=== PATIENT | female | born 1965 | race Caucasian/White ===

== ENCOUNTER 2017-04-03 19:30 | Inpatient (IN) | payer MEDICAID, OTHER ==
[~2017-04-03] VITALS: Ht 162.6 cm; Wt 52.9 kg
[~2017-04-03 19:30] MED LIST: CYCL10 PO; FLUO10CA21 PO; PANT40TA25 PO
[2017-04-03 19:58] LABS: BASOPHILS % (AUTO) 0.7 % (0.0-2.0); EOSINOPHILS % (AUTO) 1.3 % (1.0-6.0); HEMATOCRIT 37.9 % (36-46); HEMOGLOBIN 12.5 g/dL (12.0-16.0); LYMPHOCYTES # (AUTO) 3.2 K/uL (1.0-4.8); LYMPHOCYTES % (AUTO) 47.1 % (22.0-44.0); MEAN CORPUSCULAR HEMOGLOBIN 27.9 pg (26.0-34.0); MEAN CORPUSCULAR HGB CONC 32.9 G/dL (31.0-37.0); MEAN CORPUSCULAR VOLUME 85 fL (80-100); MONOCYTES # (AUTO) 0.4 K/uL (0.1-1.0); MONOCYTES % (AUTO) 5.5 % (2.0-9.0); NEUTROPHILS % (AUTO) 45.4 % (40.0-70.0); PLATELET COUNT (AUTO) 494 K/uL (150-450); RED BLOOD CELL COUNT(AUTO) 4.47 MIL/uL (4.00-5.20); RED CELL DISTRIBUTION WIDTH 15.4 % (11.5-14.5); WHITE BLOOD COUNT (AUTO) 6.7 K/uL (4.5-11.0)
[2017-04-03 20:09] LABS: ANION GAP 9 mmol/L (8-16); CALCIUM, TOTAL 8.5 mg/dL (8.8-10.5); CARBON DIOXIDE 28 mmol/L (22-29); CHLORIDE 104 mmol/L (98-107); CREATININE 0.82 mg/dL (0.60-1.30); GLOMERULAR FILTR. RATE CALC > 60 mL/min (>60); POTASSIUM 3.4 mmol/L (3.5-5.1); SODIUM SERUM 141 mmol/L (136-145); UREA NITROGEN, BLOOD 11 mg/dL (7-18)
[2017-04-03 20:16] LABS: ALANINE AMINOTRANSFERASE 17 U/L (12-78); ALBUMIN 3.2 g/dL (3.4-5.0); ASPARTATE AMINOTRANSFERASE 21 U/L (15-37); BILIRUBIN,TOTAL < 0.1 mg/dL (0.1-1.0); TOTAL PROTEIN, SERUM 7.3 g/dL (6.4-8.2)
[2017-04-03] MEDS ORDERED: HALOPERIDOL LACTATE 5 MG/ML VIAL IM ONE (21:00)
[2017-04-03] MEDS ORDERED: DiphenhydrAMINE HCL 50 MG/ML VIAL IM ONE (21:00)
[2017-04-03] MEDS ORDERED: LORazepam 2 MG/ML VIAL IM ONE (21:00)
[2017-04-03] MEDS ORDERED: ZOLPIDEM TARTRATE 10 MG TABLET PO PRN (21:45)
[2017-04-03] MEDS ORDERED: HALOPERIDOL 5 MG TABLET PO PRN (21:45)
[2017-04-03] MEDS ORDERED: LORazepam 2 MG TABLET PO PRN (21:45)
[2017-04-03 22:11] LABS: CHOL/HDL RATIO 2.3 (3.9-5.7); THYROID STIMULATING HORMONE 1.45 uIU/mL (0.36-3.74)
[2017-04-03 22:23] LABS: ADD UA MICROSCOPIC NO; APPEARANCE,URINE CLEAR (CLEAR); GLUCOSE, URINE (UA) NEGATIVE (NEGATIVE); KETONES,URINE NEGATIVE (NEGATIVE); LEUKOCYTE ESTERASE ,URINE NEGATIVE (NEGATIVE); OCCULT BLOOD,URINE NEGATIVE (NEGATIVE); PROTEIN,URINE NEGATIVE (NEGATIVE)
[2017-04-04] VITALS (10 sets, daily range): BP systolic 107–144; BP diastolic 68–86
[2017-04-04] MEDS ORDERED: POTASSIUM CHLORIDE 20 MEQ ER TABLET PO ONE (07:15)
[2017-04-05] VITALS (8 sets, daily range): BP systolic 132–155; BP diastolic 77–98
[2017-04-05] MEDS: FLUoxetine HCL 20 MG CAPSULE PO SCH (09:46)
[2017-04-05] MEDS: CloNIDine HCL 0.1 MG TABLET PO SCH (17:05)
[2017-04-06 01:54] VITALS: BP_SYST 123; BP_SYST 128; BP_DIAS 83
[2017-04-06 08:28] VITALS: BP 130/88
[2017-04-06] MEDS ORDERED: PANTOPRAZOLE SODIUM 40 MG DR TABLET PO SCH (09:00)
[2017-04-06] MEDS: CloNIDine HCL 0.1 MG TABLET PO SCH (09:07)
[2017-04-06] MEDS: FLUoxetine HCL 20 MG CAPSULE PO SCH (09:07)
[2017-04-06] MEDS ORDERED: CLON-570 PO (09:25)
== END 2017-04-06 13:20 | disposition home or self-care (01) | DRG 750 ==
LOC: EMS 19:31 → B2S 22:38
PROVIDERS: ADMIT Psychiatry & Neurology Psychiatry; ATTEND Psychiatry & Neurology Psychiatry
DX: F25.9 Schizoaffective disorder, unspecified (principal); F22 Delusional disorders; R45.851 Suicidal ideations; F31.9 Bipolar disorder, unspecified; F10.10 Alcohol abuse, uncomplicated; F17.200 Nicotine dependence, unspecified, uncomplicated; K21.9 Gastro-esophageal reflux disease without esophagitis; Y90.8 Blood alcohol level of 240 mg/100 ml or more; Z85.3 Personal history of malignant neoplasm of breast; Z98.84 Bariatric surgery status; Z88.8 Allergy status to other drugs, medicaments and biological substances
CPT/HCPCS: 84132; 84443; 87081; 96372; 99285; G0480; J1200; J1630; J2060

== ENCOUNTER 2017-05-12 20:47 | Inpatient (IN) | payer MEDICAID, OTHER ==
[~2017-05-12] VITALS: Ht 162.6 cm; Wt 57.8 kg
[~2017-05-12 20:47] MED LIST changes: +CLON-570 PO; -CYCL10 PO
[2017-05-12] MEDS ORDERED: ARIP5TAB8 PO (20:52)
[2017-05-12] MEDS ORDERED: HYDR-4031 PO (20:53)
[2017-05-12] MEDS ORDERED: GABA-531 PO (20:53)
[2017-05-12 21:10] LABS: BASOPHILS # (AUTO) 0.04 K/uL (0.00-0.20); BASOPHILS % (AUTO) 0.6 % (0.0-2.0); EOSINOPHILS % (AUTO) 1.32 % (1.0-6.0); HEMATOCRIT 38.2 % (36-46); HEMOGLOBIN 12.6 g/dL (12.0-16.0); LYMPHOCYTES % (AUTO) 55.1 % (22.0-44.0); MEAN CORPUSCULAR HEMOGLOBIN 27.7 pg (26.0-34.0); MEAN CORPUSCULAR HGB CONC 32.9 G/dL (31.0-37.0); MEAN CORPUSCULAR VOLUME 84 fL (80-100); MONOCYTES # (AUTO) 0.4 K/uL (0.1-1.0); MONOCYTES % (AUTO) 5.5 % (2.0-9.0); NEUTROPHILS # (AUTO) 2.8 K/uL (1.8-7.7); NEUTROPHILS % (AUTO) 37.5 % (40.0-70.0); PLATELET COUNT (AUTO) 375 K/uL (150-450); RED BLOOD CELL COUNT(AUTO) 4.54 MIL/uL (4.00-5.20); RED CELL DISTRIBUTION WIDTH 17.1 % (11.5-14.5); WHITE BLOOD COUNT (AUTO) 7.3 K/uL (4.5-11.0)
[2017-05-12 21:23] LABS: ANION GAP 5 mmol/L (8-16); CALCIUM, TOTAL 8.7 mg/dL (8.8-10.5); CARBON DIOXIDE 30 mmol/L (22-29); CHLORIDE 105 mmol/L (98-107); CREATININE 0.76 mg/dL (0.60-1.30); GLOMERULAR FILTR. RATE CALC > 60 mL/min (>60); POTASSIUM 4.2 mmol/L (3.5-5.1); SODIUM SERUM 140 mmol/L (136-145); UREA NITROGEN, BLOOD 10 mg/dL (7-18)
[2017-05-12 21:32] LABS: ALANINE AMINOTRANSFERASE 20 U/L (12-78); ALBUMIN 3.5 g/dL (3.4-5.0); ASPARTATE AMINOTRANSFERASE 21 U/L (15-37); BILIRUBIN,TOTAL 0.2 mg/dL (0.1-1.0); TOTAL PROTEIN, SERUM 7.2 g/dL (6.4-8.2)
[2017-05-12 21:47] LABS: RBC MORPHOLOGY COMMENT ABNORMAL RBC MORPH
[2017-05-13] VITALS (8 sets, daily range): BP systolic 116–142; BP diastolic 69–95
[2017-05-13] MEDS ORDERED: ZOLPIDEM TARTRATE 10 MG TABLET PO PRN (01:30)
[2017-05-13] MEDS ORDERED: HALOPERIDOL 5 MG TABLET PO PRN (01:30)
[2017-05-13] MEDS ORDERED: MAGNESIUM SULFATE 2 GM, MVI, ADULT NO.1 WITH VIT K 10 ML, THIAMINE HCL 100 MG, FOLIC AC... IV ONE ×5 (02:15)
[2017-05-13] MEDS ORDERED: LORazepam 2 MG/ML VIAL IVP ONE (02:15)
[2017-05-13] MEDS ORDERED: SODIUM CHLORIDE 0.9% 1,000 ML IV ONE (02:15)
[2017-05-13] MEDS ORDERED: LORazepam 2 MG TABLET PO PRN (02:45)
[2017-05-13 03:14] LABS: APPEARANCE,URINE CLEAR (CLEAR); GLUCOSE, URINE (UA) NEGATIVE (NEGATIVE); KETONES,URINE NEGATIVE (NEGATIVE); LEUKOCYTE ESTERASE ,URINE NEGATIVE (NEGATIVE); OCCULT BLOOD,URINE NEGATIVE (NEGATIVE); PH,URINE 6.5 (5.0-8.0); PROTEIN,URINE NEGATIVE (NEGATIVE)
[2017-05-13 03:15] LABS: ADD UA MICROSCOPIC NO
[2017-05-13] MEDS: LORazepam 2 MG TABLET PO PRN ×2 (08:51→17:31)
[2017-05-13] MEDS ORDERED: CYANOCOBALAMIN 1,000 MCG/ML VIAL IM ONE (10:15)
[2017-05-13] MEDS: ARIPiprazole 10 MG TABLET PO SCH (10:16)
[2017-05-13] MEDS: FLUoxetine HCL 20 MG CAPSULE PO SCH (10:16)
[2017-05-13] MEDS: NICOTINE 21 MG/24 HOUR PATCH TD SCH (10:23)
[2017-05-13] MEDS: FOLIC ACID 1 MG TABLET PO SCH (10:53)
[2017-05-13] MEDS: THIAMINE HCL 100 MG TABLET PO SCH ×2 (10:54→16:43)
[2017-05-13] MEDS ORDERED: ACETAMINOPHEN 325 MG TABLET PO PRN (20:00)
[2017-05-14 00:35] VITALS: BP_SYST 107; BP_SYST 146; BP_DIAS 69; BP_DIAS 86
[2017-05-14 05:00] VITALS: BP 140/74
[2017-05-14] MEDS ORDERED: LORazepam 2 MG TABLET PO PRN (07:00)
[2017-05-14 07:24] LABS: CHOL/HDL RATIO 1.9 (3.9-5.7)
[2017-05-14] MEDS: FLUoxetine HCL 20 MG CAPSULE PO SCH (08:57)
[2017-05-14] MEDS: LORazepam 2 MG TABLET PO SCH ×4 (08:57→21:05)
[2017-05-14] MEDS: PANTOPRAZOLE SODIUM 40 MG DR TABLET PO SCH ×2 (08:57→16:24)
[2017-05-14] MEDS: MULTIVITAMINS WITH MINERALS, THERAPEUTIC TABLET PO SCH (08:57)
[2017-05-14] MEDS: FOLIC ACID 1 MG TABLET PO SCH (08:57)
[2017-05-14] MEDS: ARIPiprazole 10 MG TABLET PO SCH (08:57)
[2017-05-14] MEDS: CloNIDine HCL 0.1 MG TABLET PO SCH ×2 (08:57→16:24)
[2017-05-14] MEDS: THIAMINE HCL 100 MG TABLET PO SCH ×2 (08:58→16:24)
[2017-05-14] MEDS: NICOTINE 21 MG/24 HOUR PATCH TD SCH (09:01)
[2017-05-14 10:11] VITALS: BP 123/72
[2017-05-14 17:58] VITALS: BP 115/76
[2017-05-15 06:12] VITALS: BP 111/67
[2017-05-15] MEDS: ARIPiprazole 10 MG TABLET PO SCH (07:58)
[2017-05-15] MEDS: LORazepam 2 MG TABLET PO SCH ×2 (07:59→12:04)
[2017-05-15 08:00] VITALS: BP 112/75
[2017-05-15] MEDS: MULTIVITAMINS WITH MINERALS, THERAPEUTIC TABLET PO SCH (08:03)
[2017-05-15] MEDS: FOLIC ACID 1 MG TABLET PO SCH (08:03)
[2017-05-15] MEDS: FLUoxetine HCL 20 MG CAPSULE PO SCH (08:03)
[2017-05-15] MEDS: PANTOPRAZOLE SODIUM 40 MG DR TABLET PO SCH (08:03)
[2017-05-15] MEDS: CloNIDine HCL 0.1 MG TABLET PO SCH (08:04)
[2017-05-15] MEDS: THIAMINE HCL 100 MG TABLET PO SCH (08:07)
[2017-05-15] MEDS: NICOTINE 21 MG/24 HOUR PATCH TD SCH (08:08)
[2017-05-15] MEDS ORDERED: MULT-1203 PO (12:05)
[2017-05-15] MEDS ORDERED: THIA100 PO (12:05)
[2017-05-16] MEDS ORDERED: LORazepam 1 MG TABLET PO PRN (07:00)
[2017-05-16] MEDS ORDERED: LORazepam 1 MG TABLET PO SCH (09:00)
[2017-05-17] MEDS ORDERED: LORazepam 1 MG TABLET PO PRN (07:00)
== END 2017-05-15 16:45 | disposition home or self-care (01) | DRG 750 ==
LOC: EMS 21:02 → 3EI 05-13 02:37 → B2S 05-13 02:37 → UNDOADMIN 05-13 02:37
DX: F25.1 Schizoaffective disorder, depressive type (principal); I95.9 Hypotension, unspecified; R45.850 Homicidal ideations; R45.851 Suicidal ideations; Z59.0 Homelessness; I10 Essential (primary) hypertension; F10.239 Alcohol dependence with withdrawal, unspecified; F41.1 Generalized anxiety disorder; G89.29 Other chronic pain; F17.210 Nicotine dependence, cigarettes, uncomplicated; K21.9 Gastro-esophageal reflux disease without esophagitis; M54.9 Dorsalgia, unspecified; Y90.8 Blood alcohol level of 240 mg/100 ml or more; Z79.899 Other long term (current) drug therapy; Z91.5 Personal history of self-harm; Z98.84 Bariatric surgery status; Z88.6 Allergy status to analgesic agent
CPT/HCPCS: 96365; 96375; 99285; G0480; J2060; J3411; J3420; J3475; J3490; J7030

== ENCOUNTER 2017-09-26 16:45 | Inpatient (IN) | payer MEDICAID, OTHER ==
[~2017-09-26] VITALS: Ht 162.6 cm; Wt 63.0 kg
[~2017-09-26 16:45] MED LIST changes: +ARIP10TA8 PO; +FLUO-191 PO; -FLUO10CA21 PO
[2017-09-26] MEDS ORDERED: LORazepam 2 MG TABLET PO ONE (17:15)
[2017-09-26] MEDS ORDERED: HALOPERIDOL 5 MG TABLET PO ONE (17:15)
[2017-09-26 17:26] LABS: BASOPHILS % (AUTO) 0.8 % (0.0-2.0); EOSINOPHILS % (AUTO) 0.6 % (1.0-6.0); HEMATOCRIT 35.5 % (36-46); HEMOGLOBIN 12.2 g/dL (12.0-16.0); LYMPHOCYTES # (AUTO) 2.9 K/uL (1.0-4.8); LYMPHOCYTES % (AUTO) 52.6 % (22.0-44.0); MEAN CORPUSCULAR HEMOGLOBIN 29.9 pg (26.0-34.0); MEAN CORPUSCULAR HGB CONC 34.3 G/dL (31.0-37.0); MEAN CORPUSCULAR VOLUME 87 fL (80-100); MONOCYTES # (AUTO) 0.4 K/uL (0.1-1.0); MONOCYTES % (AUTO) 6.5 % (2.0-9.0); NEUTROPHILS # (AUTO) 2.2 K/uL (1.8-7.7); NEUTROPHILS % (AUTO) 39.5 % (40.0-70.0); PLATELET COUNT (AUTO) 357 K/uL (150-450); RED BLOOD CELL COUNT(AUTO) 4.07 MIL/uL (4.00-5.20); RED CELL DISTRIBUTION WIDTH 15.1 % (11.5-14.5)
[2017-09-26 17:27] LABS: AMPHET/METH SCREEN,URINE NEGATIVE (NEGATIVE); BARBITURATE SCREEN, URINE NEGATIVE (NEGATIVE); BENZODIAZEPINES SCREEN,URINE NEGATIVE (NEGATIVE); CANNABINOID SCREEN,URINE NEGATIVE (NEGATIVE); COCAINE SCREEN,URINE NEGATIVE (NEGATIVE); METHADONE SCREEN, URINE NEGATIVE (NEGATIVE); OPIATE SCREEN,URINE NEGATIVE (NEGATIVE); PHENCYCLIDINE SCREEN,URINE NEGATIVE (NEGATIVE)
[2017-09-26 17:30] LABS: ANION GAP 4 mmol/L (8-16); CALCIUM, TOTAL 8.4 mg/dL (8.8-10.5); CARBON DIOXIDE 31 mmol/L (22-29); CHLORIDE 104 mmol/L (98-107); CREATININE 0.85 mg/dL (0.60-1.30); GLOMERULAR FILTR. RATE CALC > 60 mL/min (>60); GLUCOSE,RANDOM 88 mg/dL (70-110); POTASSIUM 4.3 mmol/L (3.5-5.1); SODIUM SERUM 139 mmol/L (136-145); UREA NITROGEN, BLOOD 10 mg/dL (7-18)
[2017-09-26 17:36] LABS: ALANINE AMINOTRANSFERASE 27 U/L (12-78); ALBUMIN 3.4 g/dL (3.4-5.0); ALKALINE PHOSPHATASE 70 U/L (46-116); ASPARTATE AMINOTRANSFERASE 34 U/L (15-37); BILIRUBIN,TOTAL 0.1 mg/dL (0.1-1.0); TOTAL PROTEIN, SERUM 6.8 g/dL (6.4-8.2)
[2017-09-26] MEDS ORDERED: GuaiFENesin/D-METHORPHAN [SUGAR-FREE] 200-20MG/10 ML SYRUP UDCUP PO PRN (18:45)
[2017-09-26] MEDS ORDERED: HydrOXYzine PAMOATE 50 MG CAPSULE PO PRN (18:45)
[2017-09-26] MEDS ORDERED: LORazepam 2 MG TABLET PO PRN ×2 (18:45)
[2017-09-26] MEDS ORDERED: ZOLPIDEM TARTRATE 10 MG TABLET PO PRN (18:45)
[2017-09-26] MEDS ORDERED: LOPERAMIDE HCL 2 MG CAPSULE PO PRN (18:45)
[2017-09-26] MEDS ORDERED: CYANOCOBALAMIN 1,000 MCG/ML VIAL IM ONE (18:45)
[2017-09-26] MEDS ORDERED: HALOPERIDOL 5 MG TABLET PO PRN (18:45)
[2017-09-27] VITALS (11 sets, daily range): BP systolic 105–125; BP diastolic 66–82
[2017-09-27] MEDS ORDERED: LORazepam 2 MG TABLET PO PRN (07:00)
[2017-09-27] MEDS: ARIPiprazole 10 MG TABLET PO SCH (08:42)
[2017-09-27] MEDS: FLUoxetine HCL 20 MG CAPSULE PO SCH (08:42)
[2017-09-27] MEDS: THIAMINE HCL 100 MG TABLET PO SCH ×3 (08:42→16:32)
[2017-09-27] MEDS: FOLIC ACID 1 MG TABLET PO SCH (08:42)
[2017-09-27] MEDS: LORazepam 2 MG TABLET PO SCH ×4 (08:43→20:18)
[2017-09-27] MEDS: MULTIVITAMINS WITH MINERALS, THERAPEUTIC TABLET PO SCH (08:43)
[2017-09-27] MEDS ORDERED: CYANOCOBALAMIN 1,000 MCG/ML VIAL IM ONE (09:45)
[2017-09-28] VITALS (7 sets, daily range): BP systolic 116–122; BP diastolic 67–88
[2017-09-28] MEDS: LORazepam 2 MG TABLET PO SCH ×4 (08:42→20:39)
[2017-09-28] MEDS: FOLIC ACID 1 MG TABLET PO SCH (08:42)
[2017-09-28] MEDS: THIAMINE HCL 100 MG TABLET PO SCH ×2 (08:42→16:07)
[2017-09-28] MEDS: MULTIVITAMINS WITH MINERALS, THERAPEUTIC TABLET PO SCH (08:42)
[2017-09-28] MEDS: PANTOPRAZOLE SODIUM 40 MG DR TABLET PO SCH (08:42)
[2017-09-28] MEDS: FLUoxetine HCL 20 MG CAPSULE PO SCH (08:42)
[2017-09-28] MEDS: ARIPiprazole 10 MG TABLET PO SCH (08:42)
[2017-09-28] MEDS: NICOTINE 7 MG/24 HOUR PATCH TD SCH (08:42)
[2017-09-28] MEDS: ACETAMINOPHEN 325 MG TABLET PO PRN (18:05)
[2017-09-29] VITALS (8 sets, daily range): BP systolic 110–120; BP diastolic 68–85
[2017-09-29] MEDS ORDERED: LORazepam 1 MG TABLET PO PRN (07:00)
[2017-09-29] MEDS: FOLIC ACID 1 MG TABLET PO SCH (08:22)
[2017-09-29] MEDS: MULTIVITAMINS WITH MINERALS, THERAPEUTIC TABLET PO SCH (08:22)
[2017-09-29] MEDS: ARIPiprazole 15 MG TABLET PO SCH (08:22)
[2017-09-29] MEDS: FLUoxetine HCL 20 MG CAPSULE PO SCH (08:23)
[2017-09-29] MEDS: PANTOPRAZOLE SODIUM 40 MG DR TABLET PO SCH (08:23)
[2017-09-29] MEDS: THIAMINE HCL 100 MG TABLET PO SCH ×2 (08:23→16:07)
[2017-09-29] MEDS: LORazepam 1 MG TABLET PO SCH ×4 (08:23→19:42)
[2017-09-29] MEDS: NICOTINE 7 MG/24 HOUR PATCH TD SCH (08:24)
[2017-09-29] MEDS: ACETAMINOPHEN 325 MG TABLET PO PRN (14:21)
[2017-09-29] MEDS ORDERED: BENZOCAINE 10% 7 GM GEL TP PRN (18:00)
[2017-09-30 00:28] VITALS: BP 111/70
[2017-09-30] MEDS ORDERED: LORazepam 1 MG TABLET PO PRN (07:00)
[2017-09-30 08:00] VITALS: BP 117/72
[2017-09-30 08:09] VITALS: BP_SYST 117; BP_DIAS 72; BP_DIAS 80
[2017-09-30] MEDS: FOLIC ACID 1 MG TABLET PO SCH (08:44)
[2017-09-30] MEDS: MULTIVITAMINS WITH MINERALS, THERAPEUTIC TABLET PO SCH (08:44)
[2017-09-30] MEDS: ARIPiprazole 15 MG TABLET PO SCH (08:44)
[2017-09-30] MEDS: THIAMINE HCL 100 MG TABLET PO SCH ×2 (08:45→17:13)
[2017-09-30] MEDS: PANTOPRAZOLE SODIUM 40 MG DR TABLET PO SCH (08:45)
[2017-09-30] MEDS: FLUoxetine HCL 20 MG CAPSULE PO SCH (08:45)
[2017-09-30] MEDS: NICOTINE 7 MG/24 HOUR PATCH TD SCH (08:48)
[2017-09-30 08:59] LABS: CHOL/HDL RATIO 2.1 (3.9-5.7); THYROID STIMULATING HORMONE 4.31 uIU/mL (0.36-3.74)
[2017-09-30 16:00] VITALS: BP 113/78
[2017-10-01 02:40] VITALS: BP 104/66
[2017-10-01 07:06] VITALS: BP 104/66
[2017-10-01 08:42] VITALS: BP 100/60
[2017-10-01 09:00] VITALS: BP 100/60
[2017-10-01] MEDS: MULTIVITAMINS WITH MINERALS, THERAPEUTIC TABLET PO SCH (09:14)
[2017-10-01] MEDS: FLUoxetine HCL 20 MG CAPSULE PO SCH (09:14)
[2017-10-01] MEDS: PANTOPRAZOLE SODIUM 40 MG DR TABLET PO SCH (09:14)
[2017-10-01] MEDS: ARIPiprazole 15 MG TABLET PO SCH (09:14)
[2017-10-01] MEDS: FOLIC ACID 1 MG TABLET PO SCH (09:14)
[2017-10-01] MEDS: THIAMINE HCL 100 MG TABLET PO SCH (09:14)
[2017-10-01] MEDS: NICOTINE 7 MG/24 HOUR PATCH TD SCH (09:15)
[2017-10-01] MEDS ORDERED: ARIP15TA2 PO (09:42)
[2017-10-01] MEDS ORDERED: FLUO-191 PO (09:42)
[2017-10-01] MEDS ORDERED: PANT40TA25 PO (10:58)
[2017-10-01 13:50] VITALS: BP 110/68
[2017-10-01] MEDS: ACETAMINOPHEN 325 MG TABLET PO PRN (13:51)
== END 2017-10-01 15:40 | disposition home or self-care (01) | DRG 750 ==
LOC: EMS 16:46 → B2S 22:03
PROVIDERS: ADMIT Psychiatry & Neurology Child & Adolescent Psychiatry; ATTEND Psychiatry & Neurology Psychiatry
DX: F25.9 Schizoaffective disorder, unspecified (principal); R45.850 Homicidal ideations; R45.851 Suicidal ideations; I10 Essential (primary) hypertension; D64.9 Anemia, unspecified; F10.20 Alcohol dependence, uncomplicated; F12.90 Cannabis use, unspecified, uncomplicated; K21.9 Gastro-esophageal reflux disease without esophagitis; Y90.8 Blood alcohol level of 240 mg/100 ml or more; F17.200 Nicotine dependence, unspecified, uncomplicated; Z71.6 Tobacco abuse counseling; Z71.51 Drug abuse counseling and surveillance of drug abuser; Z71.41 Alcohol abuse counseling and surveillance of alcoholic; Z79.899 Other long term (current) drug therapy; Z85.3 Personal history of malignant neoplasm of breast; Z98.82 Breast implant status; Z98.84 Bariatric surgery status; Z88.6 Allergy status to analgesic agent
CPT/HCPCS: 83036; 84443; 99285; G0480; J3420

== ENCOUNTER 2017-11-12 14:08 | Inpatient (IN) | payer MEDICAID ==
[~2017-11-12] VITALS: Ht 162.6 cm; Wt 65.5 kg
[2017-11-12] VITALS (8 sets, daily range): BP systolic 104–138; BP diastolic 65–94
[~2017-11-12 14:08] MED LIST changes: -ARIP10TA8 PO; +ARIP15TA2 PO; -CLON-570 PO
[2017-11-12] MEDS ORDERED: ZOLPIDEM TARTRATE 10 MG TABLET PO PRN (14:30)
[2017-11-12] MEDS: LORazepam 2 MG TABLET PO PRN (14:54)
[2017-11-12] MEDS ORDERED: CLON-570 PO (14:55)
[2017-11-12] MEDS ORDERED: GABA-531 PO (14:55)
[2017-11-12] MEDS ORDERED: LOPERAMIDE HCL 2 MG CAPSULE PO PRN (15:15)
[2017-11-12] MEDS ORDERED: MAG HYDROX/AL HYDROX/SIMETH ES 30 ML SUSPENSION UDCUP PO PRN (15:15)
[2017-11-12] MEDS ORDERED: ALBUTEROL SULFATE HFA 90 MCG/PUFF 8 GM INHALER IH PRN (15:15)
[2017-11-12] MEDS ORDERED: BENZOCAINE/MENTHOL LOZENGE MM PRN (15:15)
[2017-11-12] MEDS ORDERED: ONDANSETRON HCL 4 MG TABLET PO PRN (15:15)
[2017-11-12] MEDS ORDERED: PETROLATUM,WHITE 71 GM JELLY TP PRN (15:15)
[2017-11-12] MEDS ORDERED: CloNIDine HCL 0.1 MG TABLET PO PRN (15:15)
[2017-11-12] MEDS ORDERED: BACITRACIN 28.4 GM OINTMENT TP PRN (15:15)
[2017-11-12] MEDS ORDERED: MAGNESIUM HYDROXIDE SUSPENSION 30 ML UDCUP PO PRN (15:15)
[2017-11-12] MEDS ORDERED: ACETAMINOPHEN 325 MG TABLET PO PRN (15:15)
[2017-11-13] VITALS (11 sets, daily range): BP systolic 119–141; BP diastolic 76–88
[2017-11-13] MEDS: LORazepam 2 MG TABLET PO PRN ×4 (03:27→22:45)
[2017-11-13] MEDS: ARIPiprazole 15 MG TABLET PO SCH (08:41)
[2017-11-13] MEDS: OMEPRAZOLE 20 MG CAPSULE PO SCH (08:41)
[2017-11-13] MEDS: DOCUSATE SODIUM 100 MG CAPSULE PO SCH (08:41)
[2017-11-13] MEDS: FLUoxetine HCL 20 MG CAPSULE PO SCH (08:41)
[2017-11-13 09:08] LABS: BASOPHILS % (AUTO) 1.1 % (0.0-2.0); EOSINOPHILS % (AUTO) 0.5 % (1.0-6.0); HEMATOCRIT 40.2 % (36-46); HEMOGLOBIN 14.1 g/dL (12.0-16.0); LYMPHOCYTES # (AUTO) 2.6 K/uL (1.0-4.8); LYMPHOCYTES % (AUTO) 51.7 % (22.0-44.0); MEAN CORPUSCULAR HEMOGLOBIN 30.4 pg (26.0-34.0); MEAN CORPUSCULAR HGB CONC 35.2 G/dL (31.0-37.0); MEAN CORPUSCULAR VOLUME 87 fL (80-100); MONOCYTES # (AUTO) 0.3 K/uL (0.1-1.0); MONOCYTES % (AUTO) 5.7 % (2.0-9.0); NEUTROPHILS # (AUTO) 2.1 K/uL (1.8-7.7); PLATELET COUNT (AUTO) 345 K/uL (150-450); RED BLOOD CELL COUNT(AUTO) 4.64 MIL/uL (4.00-5.20); RED CELL DISTRIBUTION WIDTH 16.4 % (11.5-14.5)
[2017-11-13 09:50] LABS: ALANINE AMINOTRANSFERASE 62 U/L (12-78); ALBUMIN 3.1 g/dL (3.4-5.0); ALKALINE PHOSPHATASE 167 U/L (46-116); ANION GAP 8 mmol/L (8-16); ASPARTATE AMINOTRANSFERASE 66 U/L (15-37); BILIRUBIN,TOTAL 0.9 mg/dL (0.1-1.0); CALCIUM, TOTAL 8.6 mg/dL (8.8-10.5); CARBON DIOXIDE 27 mmol/L (22-29); CHLORIDE 100 mmol/L (98-107); CHOL/HDL RATIO 1.4 (3.9-5.7); CHOLESTEROL 146 mg/dL (131-200); CREATININE 0.83 mg/dL (0.60-1.30); FREE T4 (FREE THYROXINE) 0.93 ng/dL (0.76-1.46); GLOMERULAR FILTR. RATE CALC > 60 mL/min (>60); GLUCOSE,RANDOM 77 mg/dL (70-110); HDL CHOLESTEROL 102 mg/dL (40-60); LDL CHOL (CALC.) 22 mg/dL (0-130); SODIUM SERUM 135 mmol/L (136-145); TOTAL PROTEIN, SERUM 6.8 g/dL (6.4-8.2); TRIGLYCERIDES 108 mg/dL (15-150); UREA NITROGEN, BLOOD 16 mg/dL (7-18)
[2017-11-13] MEDS ORDERED: CYANOCOBALAMIN 1,000 MCG/ML VIAL IM ONE (10:15)
[2017-11-13] MEDS: THIAMINE HCL 100 MG TABLET PO SCH ×2 (10:38→16:33)
[2017-11-13] MEDS: GABAPENTIN 300 MG CAPSULE PO SCH ×3 (10:38→16:33)
[2017-11-13] MEDS: FOLIC ACID 1 MG TABLET PO SCH (10:39)
[2017-11-13] MEDS: MULTIVITAMINS WITH MINERALS, THERAPEUTIC TABLET PO SCH (10:39)
[2017-11-13] MEDS: CYCLOBENZAPRINE HCL 10 MG TABLET PO SCH ×4 (12:02→16:33)
[2017-11-14] VITALS (8 sets, daily range): BP systolic 122–129; BP diastolic 61–96
[2017-11-14] MEDS ORDERED: LORazepam 2 MG TABLET PO PRN (07:00)
[2017-11-14] MEDS: LORazepam 2 MG TABLET PO PRN (07:05)
[2017-11-14] MEDS: DOCUSATE SODIUM 100 MG CAPSULE PO SCH (08:48)
[2017-11-14] MEDS: CYCLOBENZAPRINE HCL 10 MG TABLET PO SCH ×3 (08:48→16:09)
[2017-11-14] MEDS: GABAPENTIN 300 MG CAPSULE PO SCH ×3 (08:48→16:09)
[2017-11-14] MEDS: MULTIVITAMINS WITH MINERALS, THERAPEUTIC TABLET PO SCH (08:48)
[2017-11-14] MEDS: FLUoxetine HCL 20 MG CAPSULE PO SCH (08:48)
[2017-11-14] MEDS: OMEPRAZOLE 20 MG CAPSULE PO SCH (08:48)
[2017-11-14] MEDS: ARIPiprazole 15 MG TABLET PO SCH (08:48)
[2017-11-14] MEDS: THIAMINE HCL 100 MG TABLET PO SCH ×2 (08:49→16:09)
[2017-11-14] MEDS: FOLIC ACID 1 MG TABLET PO SCH (08:49)
[2017-11-14] MEDS: LORazepam 2 MG TABLET PO SCH ×4 (09:24→20:08)
[2017-11-15 00:04] VITALS: BP 130/86
[2017-11-15] MEDS: HALOPERIDOL 5 MG TABLET PO PRN ×2 (00:14→18:50)
[2017-11-15 08:09] VITALS: BP 116/90
[2017-11-15] MEDS: CYCLOBENZAPRINE HCL 10 MG TABLET PO SCH ×3 (08:31→17:05)
[2017-11-15] MEDS: LORazepam 2 MG TABLET PO SCH ×4 (08:31→21:13)
[2017-11-15] MEDS: MULTIVITAMINS WITH MINERALS, THERAPEUTIC TABLET PO SCH (08:31)
[2017-11-15] MEDS: GABAPENTIN 300 MG CAPSULE PO SCH ×3 (08:31→17:05)
[2017-11-15] MEDS: ARIPiprazole 15 MG TABLET PO SCH (08:31)
[2017-11-15] MEDS: DOCUSATE SODIUM 100 MG CAPSULE PO SCH (08:31)
[2017-11-15] MEDS: OMEPRAZOLE 20 MG CAPSULE PO SCH (08:31)
[2017-11-15] MEDS: THIAMINE HCL 100 MG TABLET PO SCH ×2 (08:32→17:05)
[2017-11-15] MEDS: FLUoxetine HCL 20 MG CAPSULE PO SCH (08:32)
[2017-11-15] MEDS: FOLIC ACID 1 MG TABLET PO SCH (08:36)
[2017-11-15 08:52] VITALS: BP 116/90
[2017-11-15 12:14] VITALS: BP 122/80
[2017-11-15 16:00] VITALS: BP 112/70
[2017-11-15 16:07] VITALS: BP 112/70
[2017-11-16 06:17] VITALS: BP 119/73
[2017-11-16 06:18] VITALS: BP 119/73
[2017-11-16] MEDS ORDERED: LORazepam 1 MG TABLET PO PRN (07:00)
[2017-11-16 08:21] VITALS: BP 110/78
[2017-11-16] MEDS: FOLIC ACID 1 MG TABLET PO SCH (08:25)
[2017-11-16] MEDS: LORazepam 1 MG TABLET PO SCH ×4 (08:25→21:04)
[2017-11-16] MEDS: ARIPiprazole 15 MG TABLET PO SCH (08:25)
[2017-11-16] MEDS: FLUoxetine HCL 20 MG CAPSULE PO SCH (08:25)
[2017-11-16] MEDS: GABAPENTIN 300 MG CAPSULE PO SCH ×3 (08:26→17:00)
[2017-11-16] MEDS: OMEPRAZOLE 20 MG CAPSULE PO SCH (08:26)
[2017-11-16] MEDS: DOCUSATE SODIUM 100 MG CAPSULE PO SCH (08:26)
[2017-11-16] MEDS: MULTIVITAMINS WITH MINERALS, THERAPEUTIC TABLET PO SCH (08:26)
[2017-11-16] MEDS: THIAMINE HCL 100 MG TABLET PO SCH ×2 (08:26→17:00)
[2017-11-16] MEDS: CYCLOBENZAPRINE HCL 10 MG TABLET PO SCH ×3 (08:26→17:00)
[2017-11-16 16:00] VITALS: BP 101/75
[2017-11-16 16:01] VITALS: BP 101/75
[2017-11-17 01:00] VITALS: BP 102/70
[2017-11-17] MEDS ORDERED: LORazepam 1 MG TABLET PO PRN (07:00)
[2017-11-17] MEDS: GABAPENTIN 300 MG CAPSULE PO SCH (08:03)
[2017-11-17] MEDS: ARIPiprazole 15 MG TABLET PO SCH (08:03)
[2017-11-17] MEDS: FLUoxetine HCL 20 MG CAPSULE PO SCH (08:03)
[2017-11-17] MEDS: OMEPRAZOLE 20 MG CAPSULE PO SCH (08:03)
[2017-11-17] MEDS: DOCUSATE SODIUM 100 MG CAPSULE PO SCH (08:03)
[2017-11-17] MEDS: THIAMINE HCL 100 MG TABLET PO SCH (08:03)
[2017-11-17] MEDS: FOLIC ACID 1 MG TABLET PO SCH (08:03)
[2017-11-17] MEDS: MULTIVITAMINS WITH MINERALS, THERAPEUTIC TABLET PO SCH (08:03)
[2017-11-17] MEDS: CYCLOBENZAPRINE HCL 10 MG TABLET PO SCH (08:10)
[2017-11-17 08:24] VITALS: BP 109/79
[2017-11-17] MEDS ORDERED: CHOLECALCIFEROL (VIT D3) 1,000 UNITS TABLET PO SCH (09:00)
[2017-11-17] MEDS ORDERED: DSS100 PO (09:38)
[2017-11-17] MEDS ORDERED: OMEP20 PO (09:38)
[2017-11-17] MEDS ORDERED: CYCL10 PO (09:38)
[2017-11-17] MEDS ORDERED: VITAD1000 PO (09:38)
== END 2017-11-17 11:15 | disposition home or self-care (01) | DRG 750 ==
LOC: B2S 14:26
PROVIDERS: ADMIT Psychiatry & Neurology Psychiatry; ATTEND Psychiatry & Neurology Psychiatry
DX: F25.1 Schizoaffective disorder, depressive type (principal); R45.851 Suicidal ideations; I10 Essential (primary) hypertension; D64.9 Anemia, unspecified; F31.9 Bipolar disorder, unspecified; E55.9 Vitamin D deficiency, unspecified; K21.9 Gastro-esophageal reflux disease without esophagitis; M54.2 Cervicalgia; F10.20 Alcohol dependence, uncomplicated; K46.9 Unspecified abdominal hernia without obstruction or gangrene; F17.200 Nicotine dependence, unspecified, uncomplicated; Z90.49 Acquired absence of other specified parts of digestive tract; Z90.13 Acquired absence of bilateral breasts and nipples; Z90.710 Acquired absence of both cervix and uterus; Z98.84 Bariatric surgery status; Z88.6 Allergy status to analgesic agent; Z79.899 Other long term (current) drug therapy; Z91.5 Personal history of self-harm; Z85.3 Personal history of malignant neoplasm of breast; Z71.41 Alcohol abuse counseling and surveillance of alcoholic; Z71.6 Tobacco abuse counseling
CPT/HCPCS: 82306; 83036; 84132; 84295; 84439; 84443; J3420

== ENCOUNTER 2017-12-14 20:38 | Emergency (ER) | payer MEDICAID, OTHER ==
[~2017-12-14] VITALS: Ht 172.7 cm; Wt 63.6 kg
[~2017-12-14 20:38] MED LIST changes: +CYCL10 PO; +DSS100 PO; +GABA-531 PO; +OMEP20 PO; -PANT40TA25 PO; +VITAD1000 PO
[2017-12-14] MEDS ORDERED: QUET100T PO (20:56)
[2017-12-14 22:27] LABS: HEMATOCRIT 33.8 % (36-46); HEMOGLOBIN 11.5 g/dL (12.0-16.0); MEAN CORPUSCULAR HEMOGLOBIN 28.8 pg (26.0-34.0); MEAN CORPUSCULAR HGB CONC 34.1 G/dL (31.0-37.0); MEAN CORPUSCULAR VOLUME 84 fL (80-100); PLATELET COUNT (AUTO) 339 K/uL (150-450); RED BLOOD CELL COUNT(AUTO) 4.01 MIL/uL (4.00-5.20); RED CELL DISTRIBUTION WIDTH 16.6 % (11.5-14.5)
[2017-12-14 22:30] LABS: AMPHET/METH SCREEN,URINE NEGATIVE (NEGATIVE); BARBITURATE SCREEN, URINE NEGATIVE (NEGATIVE); BENZODIAZEPINES SCREEN,URINE NEGATIVE (NEGATIVE); CANNABINOID SCREEN,URINE NEGATIVE (NEGATIVE); COCAINE SCREEN,URINE NEGATIVE (NEGATIVE); METHADONE SCREEN, URINE NEGATIVE (NEGATIVE); OPIATE SCREEN,URINE NEGATIVE (NEGATIVE)
[2017-12-14 22:31] LABS: PHENCYCLIDINE SCREEN,URINE NEGATIVE (NEGATIVE)
[2017-12-14 22:37] LABS: ANION GAP 9 mmol/L (8-16); CALCIUM, TOTAL 8.4 mg/dL (8.8-10.5); CARBON DIOXIDE 26 mmol/L (22-29); CHLORIDE 98 mmol/L (98-107); CREATININE 0.85 mg/dL (0.60-1.30); GLOMERULAR FILTR. RATE CALC > 60 mL/min (>60); GLUCOSE,RANDOM 90 mg/dL (70-110); SODIUM SERUM 133 mmol/L (136-145); UREA NITROGEN, BLOOD 8 mg/dL (7-18)
[2017-12-14 22:43] LABS: ALANINE AMINOTRANSFERASE 26 U/L (12-78); ALBUMIN 3.2 g/dL (3.4-5.0); ALKALINE PHOSPHATASE 64 U/L (46-116); ASPARTATE AMINOTRANSFERASE 29 U/L (15-37); BILIRUBIN,TOTAL 0.1 mg/dL (0.1-1.0)
[2017-12-14 22:52] LABS: BAND NEUTROPHILS % (MANUAL) 0 % (0-5)
[2017-12-14 22:58] LABS: EOSINOPHILS % (MANUAL) 2 % (1-6); LYMPHOCYTES % (MANUAL) 47 % (22-44); MONOCYTES % (MANUAL) 6 % (2-9); REACTIVE LYMPHOCYTES 10 % (0-0); SEGMENTED NEUTROPHILS % 35 % (40-70)
[2017-12-14 23:01] LABS: PLATELET MORPHOLOGY COMMENT LARGE PLTS PRESENT
[2017-12-15 06:44] VITALS: BP 110/62
== END 2017-12-15 06:47 | disposition home or self-care (01) ==
LOC: EMS 20:39
DX: F10.10 Alcohol abuse, uncomplicated (principal); F32.9 Major depressive disorder, single episode, unspecified; F41.9 Anxiety disorder, unspecified; F20.9 Schizophrenia, unspecified; F17.210 Nicotine dependence, cigarettes, uncomplicated; Z79.899 Other long term (current) drug therapy; Z88.8 Allergy status to other drugs, medicaments and biological substances
CPT/HCPCS: 36415; 80053; 80307; 85025; 99285; G0480

== ENCOUNTER 2018-01-21 10:54 | Inpatient (IN) | payer MEDICAID, OTHER ==
[~2018-01-21] VITALS: Ht 162.6 cm; Wt 72.7 kg
[~2018-01-21 10:54] MED LIST changes: -ARIP15TA2 PO; +QUET100T PO
[2018-01-21 11:29] LABS: BASOPHILS % (AUTO) 0.9 % (0.0-2.0); EOSINOPHILS % (AUTO) 2.1 % (1.0-6.0); HEMATOCRIT 34.5 % (36-46); HEMOGLOBIN 11.8 g/dL (12.0-16.0); LYMPHOCYTES # (AUTO) 2.3 K/uL (1.0-4.8); LYMPHOCYTES % (AUTO) 35.2 % (22.0-44.0); MEAN CORPUSCULAR HEMOGLOBIN 29.3 pg (26.0-34.0); MEAN CORPUSCULAR HGB CONC 34.2 G/dL (31.0-37.0); MEAN CORPUSCULAR VOLUME 86 fL (80-100); MONOCYTES # (AUTO) 0.4 K/uL (0.1-1.0); MONOCYTES % (AUTO) 6.1 % (2.0-9.0); NEUTROPHILS # (AUTO) 3.6 K/uL (1.8-7.7); NEUTROPHILS % (AUTO) 55.7 % (40.0-70.0); PLATELET COUNT (AUTO) 356 K/uL (150-450); RED BLOOD CELL COUNT(AUTO) 4.03 MIL/uL (4.00-5.20); RED CELL DISTRIBUTION WIDTH 17.1 % (11.5-14.5)
[2018-01-21 11:37] LABS: ANION GAP 9 mmol/L (8-16); CARBON DIOXIDE 26 mmol/L (22-29); CHLORIDE 105 mmol/L (98-107); CREATININE 0.84 mg/dL (0.60-1.30); GLOMERULAR FILTR. RATE CALC > 60 mL/min (>60); GLUCOSE,RANDOM 86 mg/dL (70-110); POTASSIUM 3.7 mmol/L (3.5-5.1); SODIUM SERUM 140 mmol/L (136-145); UREA NITROGEN, BLOOD 6 mg/dL (7-18)
[2018-01-21 11:43] LABS: ALANINE AMINOTRANSFERASE 31 U/L (12-78); ALBUMIN 3.3 g/dL (3.4-5.0); ALKALINE PHOSPHATASE 74 U/L (46-116); ASPARTATE AMINOTRANSFERASE 44 U/L (15-37); BILIRUBIN,TOTAL 0.3 mg/dL (0.1-1.0)
[2018-01-21] MEDS ORDERED: HALOPERIDOL 5 MG TABLET PO ONE (12:00)
[2018-01-21] MEDS ORDERED: LORazepam 2 MG TABLET PO ONE (12:00)
[2018-01-21 12:15] LABS: AMPHET/METH SCREEN,URINE NEGATIVE (NEGATIVE); BARBITURATE SCREEN, URINE NEGATIVE (NEGATIVE); BENZODIAZEPINES SCREEN,URINE NEGATIVE (NEGATIVE); CANNABINOID SCREEN,URINE NEGATIVE (NEGATIVE); COCAINE SCREEN,URINE NEGATIVE (NEGATIVE); METHADONE SCREEN, URINE NEGATIVE (NEGATIVE); OPIATE SCREEN,URINE NEGATIVE (NEGATIVE)
[2018-01-21 12:16] LABS: PHENCYCLIDINE SCREEN,URINE NEGATIVE (NEGATIVE)
[2018-01-21] MEDS ORDERED: LOPERAMIDE HCL 2 MG CAPSULE PO PRN ×2 (12:30→16:45)
[2018-01-21] MEDS ORDERED: HydrOXYzine PAMOATE 50 MG CAPSULE PO PRN (12:30)
[2018-01-21] MEDS ORDERED: GuaiFENesin/D-METHORPHAN [SUGAR-FREE] 200-20MG/10 ML SYRUP UDCUP PO PRN (12:30)
[2018-01-21] MEDS ORDERED: CYANOCOBALAMIN 1,000 MCG/ML VIAL IM ONE (12:30)
[2018-01-21] MEDS ORDERED: LORazepam 2 MG TABLET PO PRN (12:30)
[2018-01-21] MEDS: MULTIVITAMINS WITH MINERALS, THERAPEUTIC TABLET PO SCH (13:07)
[2018-01-21] MEDS: THIAMINE HCL 100 MG TABLET PO SCH ×2 (13:07→16:56)
[2018-01-21] MEDS: FOLIC ACID 1 MG TABLET PO SCH (13:07)
[2018-01-21 15:30] VITALS: BP 108/68
[2018-01-21 16:30] VITALS: BP 105/75
[2018-01-21 16:41] VITALS: BP 108/68
[2018-01-21] MEDS ORDERED: PETROLATUM,WHITE 71 GM JELLY TP PRN (16:45)
[2018-01-21] MEDS ORDERED: MAG HYDROX/AL HYDROX/SIMETH ES 30 ML SUSPENSION UDCUP PO PRN (16:45)
[2018-01-21] MEDS ORDERED: ONDANSETRON HCL 4 MG TABLET PO PRN (16:45)
[2018-01-21] MEDS ORDERED: DOCUSATE SODIUM 100 MG CAPSULE PO PRN (16:45)
[2018-01-21] MEDS ORDERED: MAGNESIUM HYDROXIDE SUSPENSION 30 ML UDCUP PO PRN (16:45)
[2018-01-21] MEDS ORDERED: CloNIDine HCL 0.1 MG TABLET PO PRN (16:45)
[2018-01-21] MEDS ORDERED: ALBUTEROL SULFATE HFA 90 MCG/PUFF 8 GM INHALER IH PRN (16:45)
[2018-01-21] MEDS ORDERED: ACETAMINOPHEN 325 MG TABLET PO PRN (16:45)
[2018-01-21] MEDS: QUEtiapine FUMARATE 100 MG TABLET PO SCH (16:54)
[2018-01-21] MEDS: GABAPENTIN 300 MG CAPSULE PO SCH (16:56)
[2018-01-21 17:30] VITALS: BP 132/68
[2018-01-21 18:30] VITALS: BP 111/75
[2018-01-21] MEDS ORDERED: PNEUMOCOCCAL VACCINE POLYVALENT 0.5 ML VIAL [PPSV23] IM ONE (21:00)
[2018-01-21 22:30] VITALS: BP 135/76
[2018-01-22] VITALS (7 sets, daily range): BP systolic 116–135; BP diastolic 67–85
[2018-01-22] MEDS ORDERED: LORazepam 2 MG TABLET PO PRN (07:00)
[2018-01-22 08:25] LABS: BASOPHILS % (AUTO) 0.9 % (0.0-2.0); HEMATOCRIT 37.7 % (36-46); HEMOGLOBIN 12.6 g/dL (12.0-16.0); LYMPHOCYTES # (AUTO) 2.2 K/uL (1.0-4.8); LYMPHOCYTES % (AUTO) 34.5 % (22.0-44.0); MEAN CORPUSCULAR HEMOGLOBIN 29.1 pg (26.0-34.0); MEAN CORPUSCULAR HGB CONC 33.5 G/dL (31.0-37.0); MEAN CORPUSCULAR VOLUME 87 fL (80-100); MONOCYTES # (AUTO) 0.3 K/uL (0.1-1.0); MONOCYTES % (AUTO) 4.6 % (2.0-9.0); NEUTROPHILS # (AUTO) 3.6 K/uL (1.8-7.7); PLATELET COUNT (AUTO) 360 K/uL (150-450); RED BLOOD CELL COUNT(AUTO) 4.33 MIL/uL (4.00-5.20); RED CELL DISTRIBUTION WIDTH 17.3 % (11.5-14.5)
[2018-01-22] MEDS ORDERED: HALOPERIDOL 5 MG TABLET PO PRN (08:30)
[2018-01-22 08:35] LABS: HEMOGLOBIN A1C 4.9 % (4.5-6.2)
[2018-01-22 08:53] LABS: ALANINE AMINOTRANSFERASE 25 U/L (12-78); ALBUMIN 3.2 g/dL (3.4-5.0); ALKALINE PHOSPHATASE 71 U/L (46-116); ANION GAP 8 mmol/L (8-16); ASPARTATE AMINOTRANSFERASE 25 U/L (15-37); BILIRUBIN,TOTAL 0.4 mg/dL (0.1-1.0); CALCIUM, TOTAL 9.1 mg/dL (8.8-10.5); CARBON DIOXIDE 29 mmol/L (22-29); CHLORIDE 105 mmol/L (98-107); CHOL/HDL RATIO 2.4 (3.9-5.7); CHOLESTEROL 158 mg/dL (131-200); CREATININE 0.91 mg/dL (0.60-1.30); GLOMERULAR FILTR. RATE CALC > 60 mL/min (>60); GLUCOSE,RANDOM 92 mg/dL (70-110); HDL CHOLESTEROL 65 mg/dL (40-60); LDL CHOL (CALC.) 70 mg/dL (0-130); POTASSIUM 4.1 mmol/L (3.5-5.1); SODIUM SERUM 142 mmol/L (136-145); THYROID STIMULATING HORMONE 1.75 uIU/mL (0.36-3.74); TOTAL PROTEIN, SERUM 6.9 g/dL (6.4-8.2); TRIGLYCERIDES 116 mg/dL (15-150); UREA NITROGEN, BLOOD 10 mg/dL (7-18)
[2018-01-22] MEDS: FOLIC ACID 1 MG TABLET PO SCH (08:57)
[2018-01-22] MEDS: GABAPENTIN 300 MG CAPSULE PO SCH ×3 (08:57→16:18)
[2018-01-22] MEDS: MULTIVITAMINS WITH MINERALS, THERAPEUTIC TABLET PO SCH (08:57)
[2018-01-22] MEDS: CYCLOBENZAPRINE HCL 10 MG TABLET PO SCH ×3 (08:57→16:18)
[2018-01-22] MEDS: FLUoxetine HCL 20 MG CAPSULE PO SCH (08:57)
[2018-01-22] MEDS: CHOLECALCIFEROL (VIT D3) 1,000 UNITS TABLET PO SCH (08:57)
[2018-01-22] MEDS: LORazepam 2 MG TABLET PO SCH ×4 (08:57→20:21)
[2018-01-22] MEDS: NICOTINE 14 MG/24 HOUR PATCH TD SCH (08:58)
[2018-01-22] MEDS: QUEtiapine FUMARATE 100 MG TABLET PO SCH ×2 (08:58→16:17)
[2018-01-22] MEDS ORDERED: ARIPiprazole 15 MG TABLET PO SCH (09:00)
[2018-01-22] MEDS ORDERED: FLUoxetine HCL 20 MG CAPSULE PO SCH (09:00)
[2018-01-22] MEDS: THIAMINE HCL 100 MG TABLET PO SCH ×2 (09:19→16:18)
[2018-01-22] MEDS ORDERED: CYCLOBENZAPRINE HCL 10 MG TABLET PO SCH (13:00)
[2018-01-23] VITALS (9 sets, daily range): BP systolic 94–140; BP diastolic 59–89
[2018-01-23] MEDS: FLUoxetine HCL 20 MG CAPSULE PO SCH (08:49)
[2018-01-23] MEDS: CHOLECALCIFEROL (VIT D3) 1,000 UNITS TABLET PO SCH (08:50)
[2018-01-23] MEDS: GABAPENTIN 300 MG CAPSULE PO SCH ×3 (08:50→16:50)
[2018-01-23] MEDS: THIAMINE HCL 100 MG TABLET PO SCH ×2 (08:50→16:50)
[2018-01-23] MEDS: CYCLOBENZAPRINE HCL 10 MG TABLET PO SCH ×3 (08:50→16:50)
[2018-01-23] MEDS: MULTIVITAMINS WITH MINERALS, THERAPEUTIC TABLET PO SCH (08:50)
[2018-01-23] MEDS: QUEtiapine FUMARATE 100 MG TABLET PO SCH ×2 (08:50→16:50)
[2018-01-23] MEDS: FOLIC ACID 1 MG TABLET PO SCH (08:50)
[2018-01-23] MEDS: LORazepam 2 MG TABLET PO SCH ×4 (08:50→20:36)
[2018-01-23] MEDS: NICOTINE 14 MG/24 HOUR PATCH TD SCH (08:51)
[2018-01-23] MEDS ORDERED: CHOLECALCIFEROL (VIT D3) 1,000 UNITS TABLET PO SCH (09:00)
[2018-01-24] VITALS (7 sets, daily range): BP systolic 129–145; BP diastolic 54–96
[2018-01-24] MEDS ORDERED: LORazepam 1 MG TABLET PO PRN (07:00)
[2018-01-24] MEDS: GABAPENTIN 300 MG CAPSULE PO SCH ×3 (08:19→16:39)
[2018-01-24] MEDS: FLUoxetine HCL 20 MG CAPSULE PO SCH (08:19)
[2018-01-24] MEDS: CHOLECALCIFEROL (VIT D3) 1,000 UNITS TABLET PO SCH (08:19)
[2018-01-24] MEDS: NITROFURANTOIN/NITROFURAN MAC 100 MG CAPSULE [MACROBID] PO SCH ×2 (08:19→16:39)
[2018-01-24] MEDS: QUEtiapine FUMARATE 100 MG TABLET PO SCH ×2 (08:19→16:39)
[2018-01-24] MEDS: MULTIVITAMINS WITH MINERALS, THERAPEUTIC TABLET PO SCH (08:19)
[2018-01-24] MEDS: CYCLOBENZAPRINE HCL 10 MG TABLET PO SCH ×3 (08:20→16:39)
[2018-01-24] MEDS: THIAMINE HCL 100 MG TABLET PO SCH ×2 (08:20→16:39)
[2018-01-24] MEDS: LORazepam 1 MG TABLET PO SCH ×4 (08:20→20:17)
[2018-01-24] MEDS: FOLIC ACID 1 MG TABLET PO SCH (08:20)
[2018-01-24] MEDS: NICOTINE 14 MG/24 HOUR PATCH TD SCH (08:20)
[2018-01-25] VITALS (7 sets, daily range): BP systolic 126–140; BP diastolic 81–90
[2018-01-25] MEDS: LORazepam 1 MG TABLET PO PRN ×2 (06:30→13:06)
[2018-01-25] MEDS: QUEtiapine FUMARATE 100 MG TABLET PO SCH ×2 (08:24→17:13)
[2018-01-25] MEDS: CHOLECALCIFEROL (VIT D3) 1,000 UNITS TABLET PO SCH (08:24)
[2018-01-25] MEDS: FLUoxetine HCL 20 MG CAPSULE PO SCH (08:25)
[2018-01-25] MEDS: NITROFURANTOIN/NITROFURAN MAC 100 MG CAPSULE [MACROBID] PO SCH ×2 (08:25→17:13)
[2018-01-25] MEDS: THIAMINE HCL 100 MG TABLET PO SCH ×2 (08:25→17:13)
[2018-01-25] MEDS: FOLIC ACID 1 MG TABLET PO SCH (08:25)
[2018-01-25] MEDS: MULTIVITAMINS WITH MINERALS, THERAPEUTIC TABLET PO SCH (08:25)
[2018-01-25] MEDS: CYCLOBENZAPRINE HCL 10 MG TABLET PO SCH ×3 (08:25→17:13)
[2018-01-25] MEDS: GABAPENTIN 300 MG CAPSULE PO SCH ×3 (08:25→17:13)
[2018-01-25] MEDS: NICOTINE 14 MG/24 HOUR PATCH TD SCH (08:35)
[2018-01-26] MEDS: ZOLPIDEM TARTRATE 10 MG TABLET PO PRN ×2 (00:31→20:17)
[2018-01-26 01:50] VITALS: BP 125/87
[2018-01-26] MEDS: LORazepam 1 MG TABLET PO PRN (04:59)
[2018-01-26 08:00] VITALS: BP 102/56
[2018-01-26] MEDS: NICOTINE 14 MG/24 HOUR PATCH TD SCH (08:33)
[2018-01-26] MEDS: FOLIC ACID 1 MG TABLET PO SCH (08:33)
[2018-01-26] MEDS: THIAMINE HCL 100 MG TABLET PO SCH ×2 (08:33→16:25)
[2018-01-26] MEDS: QUEtiapine FUMARATE 100 MG TABLET PO SCH ×2 (08:33→16:25)
[2018-01-26] MEDS: CYCLOBENZAPRINE HCL 10 MG TABLET PO SCH ×3 (08:33→16:26)
[2018-01-26] MEDS: MULTIVITAMINS WITH MINERALS, THERAPEUTIC TABLET PO SCH (08:33)
[2018-01-26] MEDS: NITROFURANTOIN/NITROFURAN MAC 100 MG CAPSULE [MACROBID] PO SCH ×2 (08:33→16:25)
[2018-01-26] MEDS: FLUoxetine HCL 20 MG CAPSULE PO SCH (08:33)
[2018-01-26] MEDS: GABAPENTIN 300 MG CAPSULE PO SCH ×3 (08:33→16:25)
[2018-01-26] MEDS: CHOLECALCIFEROL (VIT D3) 1,000 UNITS TABLET PO SCH (08:33)
[2018-01-26 09:19] VITALS: BP 144/87
[2018-01-26 16:10] VITALS: BP 110/96
[2018-01-26] MEDS: NALTREXONE HCL 50 MG TABLET PO SCH (16:29)
[2018-01-27 01:55] VITALS: BP 123/91
[2018-01-27] MEDS: THIAMINE HCL 100 MG TABLET PO SCH (08:25)
[2018-01-27] MEDS: FOLIC ACID 1 MG TABLET PO SCH (08:25)
[2018-01-27] MEDS: NALTREXONE HCL 50 MG TABLET PO SCH (08:25)
[2018-01-27] MEDS: FLUoxetine HCL 20 MG CAPSULE PO SCH (08:25)
[2018-01-27] MEDS: GABAPENTIN 300 MG CAPSULE PO SCH ×2 (08:25→12:24)
[2018-01-27] MEDS: NITROFURANTOIN/NITROFURAN MAC 100 MG CAPSULE [MACROBID] PO SCH (08:25)
[2018-01-27] MEDS: CHOLECALCIFEROL (VIT D3) 1,000 UNITS TABLET PO SCH (08:25)
[2018-01-27] MEDS: CYCLOBENZAPRINE HCL 10 MG TABLET PO SCH ×2 (08:25→12:24)
[2018-01-27] MEDS: MULTIVITAMINS WITH MINERALS, THERAPEUTIC TABLET PO SCH (08:25)
[2018-01-27] MEDS: QUEtiapine FUMARATE 100 MG TABLET PO SCH (08:25)
[2018-01-27 08:28] VITALS: BP 146/100
[2018-01-27] MEDS: NICOTINE 14 MG/24 HOUR PATCH TD SCH (08:30)
[2018-01-27] MEDS ORDERED: MULT-1239 PO (11:23)
[2018-01-27] MEDS ORDERED: NALT50TA6 PO (11:23)
[2018-01-27] MEDS ORDERED: FOLI1 PO (11:23)
[2018-01-27] MEDS ORDERED: THIA100T67 PO (11:23)
[2018-01-27] MEDS ORDERED: MACR100 PO (11:26)
== END 2018-01-27 13:20 | disposition home or self-care (01) | DRG 750 ==
LOC: EMS 10:55 → B3A 14:30 → EMS 14:58 → B3A 01-23 19:41
PROVIDERS: ADMIT Psychiatry & Neurology Psychiatry; ATTEND Psychiatry & Neurology Psychiatry
DX: F25.0 Schizoaffective disorder, bipolar type (principal); E88.09 Other disorders of plasma-protein metabolism, not elsewhere classified; R45.851 Suicidal ideations; I10 Essential (primary) hypertension; E55.9 Vitamin D deficiency, unspecified; E86.0 Dehydration; D64.9 Anemia, unspecified; F10.229 Alcohol dependence with intoxication, unspecified; F17.210 Nicotine dependence, cigarettes, uncomplicated; F41.9 Anxiety disorder, unspecified; K21.9 Gastro-esophageal reflux disease without esophagitis; N39.0 Urinary tract infection, site not specified; Z79.899 Other long term (current) drug therapy; Z59.0 Homelessness; Z85.3 Personal history of malignant neoplasm of breast; Z81.8 Family history of other mental and behavioral disorders; Z91.5 Personal history of self-harm; Z98.84 Bariatric surgery status; Z71.6 Tobacco abuse counseling; Z71.41 Alcohol abuse counseling and surveillance of alcoholic; Z28.21 Immunization not carried out because of patient refusal
CPT/HCPCS: 83036; 84443; 90471; 96372; 99285; G0480; J3420

== ENCOUNTER 2018-01-23 18:32 | Emergency (ER) | payer MEDICAID, OTHER ==
[~2018-01-23 18:32] MED LIST changes: -DSS100 PO; -OMEP20 PO
[2018-01-23 19:46] LABS: BASOPHILS % (AUTO) 0.7 % (0.0-2.0); HEMATOCRIT 34.2 % (36-46); HEMOGLOBIN 11.5 g/dL (12.0-16.0); LYMPHOCYTES % (AUTO) 39.9 % (22.0-44.0); MEAN CORPUSCULAR HGB CONC 33.6 G/dL (31.0-37.0); MEAN CORPUSCULAR VOLUME 86 fL (80-100); MONOCYTES # (AUTO) 0.4 K/uL (0.1-1.0); MONOCYTES % (AUTO) 7.5 % (2.0-9.0); NEUTROPHILS # (AUTO) 2.4 K/uL (1.8-7.7); NEUTROPHILS % (AUTO) 48.9 % (40.0-70.0); PLATELET COUNT (AUTO) 325 K/uL (150-450); RED BLOOD CELL COUNT(AUTO) 3.97 MIL/uL (4.00-5.20); RED CELL DISTRIBUTION WIDTH 17.2 % (11.5-14.5)
[2018-01-23 19:56] LABS: ANION GAP 5 mmol/L (8-16); CALCIUM, TOTAL 8.7 mg/dL (8.8-10.5); CARBON DIOXIDE 29 mmol/L (22-29); CHLORIDE 106 mmol/L (98-107); CREATININE 0.88 mg/dL (0.60-1.30); GLOMERULAR FILTR. RATE CALC > 60 mL/min (>60); GLUCOSE,RANDOM 95 mg/dL (70-110); SODIUM SERUM 140 mmol/L (136-145); UREA NITROGEN, BLOOD 15 mg/dL (7-18)
[2018-01-23 20:11] LABS: ALANINE AMINOTRANSFERASE 19 U/L (12-78); ALBUMIN 2.9 g/dL (3.4-5.0); ALKALINE PHOSPHATASE 59 U/L (46-116); ASPARTATE AMINOTRANSFERASE 16 U/L (15-37); BILIRUBIN,TOTAL 0.2 mg/dL (0.1-1.0); THYROID STIMULATING HORMONE 0.95 uIU/mL (0.36-3.74); TOTAL PROTEIN, SERUM 6.2 g/dL (6.4-8.2)
[2018-01-23] MEDS ORDERED: SODIUM CHLORIDE 0.9% 1,000 ML IV ONE (21:15)
[2018-01-23 22:00] LABS: AMPHET/METH SCREEN,URINE NEGATIVE (NEGATIVE); BARBITURATE SCREEN, URINE NEGATIVE (NEGATIVE); BENZODIAZEPINES SCREEN,URINE NEGATIVE (NEGATIVE); CANNABINOID SCREEN,URINE NEGATIVE (NEGATIVE); COCAINE SCREEN,URINE NEGATIVE (NEGATIVE); METHADONE SCREEN, URINE NEGATIVE (NEGATIVE); PHENCYCLIDINE SCREEN,URINE NEGATIVE (NEGATIVE)
[2018-01-23 22:01] LABS: APPEARANCE,URINE CLOUDY (CLEAR); BILIRUBIN,URINE NEGATIVE (NEGATIVE); GLUCOSE, URINE (UA) NEGATIVE (NEGATIVE); KETONES,URINE NEGATIVE (NEGATIVE); LEUKOCYTE ESTERASE ,URINE MODERATE (NEGATIVE); NITRATE,URINE POSITIVE (NEGATIVE); OCCULT BLOOD,URINE NEGATIVE (NEGATIVE); PH,URINE 6.5 (5.0-8.0); PROTEIN,URINE NEGATIVE (NEGATIVE)
[2018-01-23 22:07] LABS: OPIATE SCREEN,URINE NEGATIVE (NEGATIVE)
[2018-01-23 22:12] LABS: RBC,URINE None Seen /HPF (0-2); WBC,URINE 26-50 /HPF (0-5)
[2018-01-23 22:13] LABS: BACTERIA,URINE Many /HPF (None Seen); SQUAMOUS EPITHELIAL CELL,UR Few /LPF (None Seen)
[2018-01-23] MEDS ORDERED: NITROFURANTOIN/NITROFURAN MAC 100 MG CAPSULE [MACROBID] PO ONE (23:00)
[2018-01-23 23:40] VITALS: BP 129/86
== END 2018-01-24 00:37 | disposition home or self-care (01) ==
LOC: EMS 18:32
DX: S00.211A Abrasion of right eyelid and periocular area, initial encounter (principal); S00.212A Abrasion of left eyelid and periocular area, initial encounter; N39.0 Urinary tract infection, site not specified; R42 Dizziness and giddiness; F25.9 Schizoaffective disorder, unspecified; F41.9 Anxiety disorder, unspecified; F31.9 Bipolar disorder, unspecified; F17.210 Nicotine dependence, cigarettes, uncomplicated; Z88.8 Allergy status to other drugs, medicaments and biological substances; Z79.899 Other long term (current) drug therapy; W01.198A Fall on same level from slipping, tripping and stumbling with subsequent striking against other object, initial encounter; Y93.89 Activity, other specified; Y92.89 Other specified places as the place of occurrence of the external cause; Y99.8 Other external cause status
CPT/HCPCS: 36415; 80053; 80307; 81001; 84443; 84484; 85025; 87086; 93005; 96360; 99285; G0480; J7030

== ENCOUNTER 2018-01-30 15:16 | Inpatient (IN) | payer MEDICAID, OTHER ==
[~2018-01-30] VITALS: Ht 162.6 cm; Wt 71.7 kg
[~2018-01-30 15:16] MED LIST changes: +FOLI1 PO; +MACR100 PO; +MULT-1239 PO; +NALT50TA6 PO; +THIA100T67 PO
[2018-01-30] MEDS ORDERED: LORazepam 2 MG TABLET PO ONE (17:45)
[2018-01-30] MEDS ORDERED: HALOPERIDOL 5 MG TABLET PO ONE (17:45)
[2018-01-30 17:47] LABS: BASOPHILS % (AUTO) 0.9 % (0.0-2.0); HEMATOCRIT 34.6 % (36-46); HEMOGLOBIN 11.6 g/dL (12.0-16.0); LYMPHOCYTES % (AUTO) 58.6 % (22.0-44.0); MEAN CORPUSCULAR HEMOGLOBIN 28.8 pg (26.0-34.0); MEAN CORPUSCULAR HGB CONC 33.6 G/dL (31.0-37.0); MEAN CORPUSCULAR VOLUME 86 fL (80-100); MONOCYTES # (AUTO) 0.6 K/uL (0.1-1.0); MONOCYTES % (AUTO) 8.4 % (2.0-9.0); NEUTROPHILS # (AUTO) 2.1 K/uL (1.8-7.7); NEUTROPHILS % (AUTO) 31.1 % (40.0-70.0); PLATELET COUNT (AUTO) 318 K/uL (150-450); RED BLOOD CELL COUNT(AUTO) 4.03 MIL/uL (4.00-5.20); RED CELL DISTRIBUTION WIDTH 17.2 % (11.5-14.5)
[2018-01-30 17:55] LABS: CALCIUM, TOTAL 8.2 mg/dL (8.8-10.5); CREATININE 1.02 mg/dL (0.60-1.30); POTASSIUM 4.1 mmol/L (3.5-5.1)
[2018-01-30 18:03] LABS: ALBUMIN 3.4 g/dL (3.4-5.0); BILIRUBIN,TOTAL 0.4 mg/dL (0.1-1.0); TOTAL PROTEIN, SERUM 7.2 g/dL (6.4-8.2)
[2018-01-30] MEDS ORDERED: HALOPERIDOL 5 MG TABLET PO PRN (19:15)
[2018-01-30 19:24] LABS: AMPHET/METH SCREEN,URINE NEGATIVE (NEGATIVE); BARBITURATE SCREEN, URINE NEGATIVE (NEGATIVE); BENZODIAZEPINES SCREEN,URINE NEGATIVE (NEGATIVE); CANNABINOID SCREEN,URINE NEGATIVE (NEGATIVE); COCAINE SCREEN,URINE NEGATIVE (NEGATIVE); METHADONE SCREEN, URINE NEGATIVE (NEGATIVE); OPIATE SCREEN,URINE NEGATIVE (NEGATIVE); PHENCYCLIDINE SCREEN,URINE NEGATIVE (NEGATIVE)
[2018-01-30 21:35] VITALS: BP 99/69
[2018-01-30 21:45] VITALS: BP 99/69
[2018-01-30] MEDS ORDERED: ALBUTEROL SULFATE HFA 90 MCG/PUFF 8 GM INHALER IH PRN (22:15)
[2018-01-30] MEDS ORDERED: MAG HYDROX/AL HYDROX/SIMETH ES 30 ML SUSPENSION UDCUP PO PRN (22:15)
[2018-01-30] MEDS ORDERED: LOPERAMIDE HCL 2 MG CAPSULE PO PRN (22:15)
[2018-01-30] MEDS ORDERED: CloNIDine HCL 0.1 MG TABLET PO PRN (22:15)
[2018-01-30] MEDS ORDERED: ACETAMINOPHEN 325 MG TABLET PO PRN (22:15)
[2018-01-30] MEDS ORDERED: DOCUSATE SODIUM 100 MG CAPSULE PO PRN (22:15)
[2018-01-30] MEDS ORDERED: ONDANSETRON HCL 4 MG TABLET PO PRN (22:15)
[2018-01-30] MEDS ORDERED: MAGNESIUM HYDROXIDE SUSPENSION 30 ML UDCUP PO PRN (22:15)
[2018-01-30] MEDS ORDERED: PETROLATUM,WHITE 71 GM JELLY TP PRN (22:15)
[2018-01-30 22:35] VITALS: BP 100/63
[2018-01-31] VITALS (8 sets, daily range): BP systolic 109–139; BP diastolic 60–93
[2018-01-31] MEDS ORDERED: PNEUMOCOCCAL VACCINE POLYVALENT 0.5 ML VIAL [PPSV23] IM ONE (00:15)
[2018-01-31 07:45] LABS: HEMOGLOBIN A1C 5.1 % (4.5-6.2)
[2018-01-31 07:49] LABS: ALBUMIN 3.3 g/dL (3.4-5.0); BILIRUBIN,TOTAL 0.4 mg/dL (0.1-1.0); CALCIUM, TOTAL 8.8 mg/dL (8.8-10.5); CHOL/HDL RATIO 2.2 (3.9-5.7); CREATININE 0.98 mg/dL (0.60-1.30); POTASSIUM 4.6 mmol/L (3.5-5.1); THYROID STIMULATING HORMONE 3.74 uIU/mL (0.36-3.74); TOTAL PROTEIN, SERUM 6.4 g/dL (6.4-8.2)
[2018-01-31] MEDS: FOLIC ACID 1 MG TABLET PO SCH (08:03)
[2018-01-31] MEDS: FLUoxetine HCL 20 MG CAPSULE PO SCH (08:03)
[2018-01-31] MEDS: CHOLECALCIFEROL (VIT D3) 1,000 UNITS TABLET PO SCH (08:03)
[2018-01-31] MEDS: THIAMINE HCL 100 MG TABLET PO SCH ×2 (08:03→16:06)
[2018-01-31] MEDS: ARIPiprazole 15 MG TABLET PO SCH (08:03)
[2018-01-31] MEDS: PRENATAL VIT#96/FERROUS FUM/FA TABLET PO SCH (08:04)
[2018-01-31] MEDS: NICOTINE 14 MG/24 HOUR PATCH TD SCH (08:04)
[2018-01-31] MEDS: CYCLOBENZAPRINE HCL 10 MG TABLET PO SCH ×3 (08:04→16:07)
[2018-01-31] MEDS: LORazepam 2 MG TABLET PO PRN ×2 (09:04→14:12)
[2018-01-31] MEDS ORDERED: THIAMINE HCL 100 MG TABLET PO SCH (17:00)
[2018-01-31] MEDS: FERROUS SULFATE 325 MG EC TABLET PO SCH (19:26)
[2018-01-31] MEDS: ZOLPIDEM TARTRATE 10 MG TABLET PO PRN (22:48)
[2018-02-01 02:58] VITALS: BP 110/78
[2018-02-01 06:51] VITALS: BP 138/97
[2018-02-01] MEDS: LORazepam 2 MG TABLET PO PRN ×3 (06:55→16:06)
[2018-02-01] MEDS: FERROUS SULFATE 325 MG EC TABLET PO SCH ×3 (06:57→17:16)
[2018-02-01] MEDS: PRENATAL VIT#96/FERROUS FUM/FA TABLET PO SCH (08:21)
[2018-02-01] MEDS: THIAMINE HCL 100 MG TABLET PO SCH ×2 (08:22→17:16)
[2018-02-01] MEDS: CHOLECALCIFEROL (VIT D3) 1,000 UNITS TABLET PO SCH (08:22)
[2018-02-01] MEDS: FLUoxetine HCL 20 MG CAPSULE PO SCH (08:22)
[2018-02-01] MEDS: ARIPiprazole 15 MG TABLET PO SCH (08:22)
[2018-02-01] MEDS: MULTIVITAMINS WITH MINERALS, THERAPEUTIC TABLET PO SCH (08:22)
[2018-02-01] MEDS: CYCLOBENZAPRINE HCL 10 MG TABLET PO SCH ×3 (08:22→17:16)
[2018-02-01] MEDS: FOLIC ACID 1 MG TABLET PO SCH (08:23)
[2018-02-01] MEDS: NICOTINE 14 MG/24 HOUR PATCH TD SCH (08:54)
[2018-02-01] MEDS ORDERED: CHOLECALCIFEROL (VIT D3) 1,000 UNITS TABLET PO SCH (09:00)
[2018-02-01] MEDS ORDERED: FOLIC ACID 1 MG TABLET PO SCH (09:00)
[2018-02-01 10:05] VITALS: BP 126/77
[2018-02-01 10:06] VITALS: BP 126/77
[2018-02-01 16:00] VITALS: BP 135/85
[2018-02-01 16:04] VITALS: BP 132/85
[2018-02-01] MEDS: ZOLPIDEM TARTRATE 10 MG TABLET PO PRN (21:25)
[2018-02-02 02:09] VITALS: BP 112/64
[2018-02-02 02:10] VITALS: BP 112/64
[2018-02-02] MEDS: LORazepam 2 MG TABLET PO PRN ×3 (05:44→17:12)
[2018-02-02] MEDS: FERROUS SULFATE 325 MG EC TABLET PO SCH ×3 (06:13→16:40)
[2018-02-02 08:15] VITALS: BP 152/93
[2018-02-02 08:19] VITALS: BP 152/93
[2018-02-02] MEDS: ARIPiprazole 15 MG TABLET PO SCH (09:14)
[2018-02-02] MEDS: CHOLECALCIFEROL (VIT D3) 1,000 UNITS TABLET PO SCH (09:14)
[2018-02-02] MEDS: FLUoxetine HCL 20 MG CAPSULE PO SCH (09:14)
[2018-02-02] MEDS: CYCLOBENZAPRINE HCL 10 MG TABLET PO SCH ×3 (09:15→16:40)
[2018-02-02] MEDS: THIAMINE HCL 100 MG TABLET PO SCH ×2 (09:15→16:39)
[2018-02-02] MEDS: MULTIVITAMINS WITH MINERALS, THERAPEUTIC TABLET PO SCH (09:15)
[2018-02-02] MEDS: FOLIC ACID 1 MG TABLET PO SCH (09:15)
[2018-02-02] MEDS: NICOTINE 14 MG/24 HOUR PATCH TD SCH (09:21)
[2018-02-02 14:04] VITALS: BP 129/79
[2018-02-02 16:30] VITALS: BP 121/90
[2018-02-02] MEDS: ZOLPIDEM TARTRATE 10 MG TABLET PO PRN (20:30)
[2018-02-03 05:08] VITALS: BP 128/97
[2018-02-03] MEDS: LORazepam 2 MG TABLET PO PRN ×3 (05:13→16:42)
[2018-02-03 06:28] VITALS: BP 140/82
[2018-02-03] MEDS: FERROUS SULFATE 325 MG EC TABLET PO SCH ×3 (06:39→16:42)
[2018-02-03 08:00] VITALS: BP 131/88
[2018-02-03 08:23] VITALS: BP 131/88
[2018-02-03] MEDS: DISULFIRAM 250 MG TABLET PO SCH (08:26)
[2018-02-03] MEDS: ARIPiprazole 15 MG TABLET PO SCH (08:27)
[2018-02-03] MEDS: CYCLOBENZAPRINE HCL 10 MG TABLET PO SCH ×3 (08:27→16:42)
[2018-02-03] MEDS: FLUoxetine HCL 20 MG CAPSULE PO SCH (08:28)
[2018-02-03] MEDS: THIAMINE HCL 100 MG TABLET PO SCH ×2 (08:28→16:42)
[2018-02-03] MEDS: MULTIVITAMINS WITH MINERALS, THERAPEUTIC TABLET PO SCH (08:28)
[2018-02-03] MEDS: NICOTINE 14 MG/24 HOUR PATCH TD SCH (08:29)
[2018-02-03] MEDS: FOLIC ACID 1 MG TABLET PO SCH (08:29)
[2018-02-03] MEDS: CHOLECALCIFEROL (VIT D3) 1,000 UNITS TABLET PO SCH (08:29)
[2018-02-03 16:00] VITALS: BP 110/78
[2018-02-03 16:15] VITALS: BP 110/78
[2018-02-03] MEDS: ZOLPIDEM TARTRATE 10 MG TABLET PO PRN (20:50)
[2018-02-04] MEDS: LORazepam 2 MG TABLET PO PRN ×2 (05:48→10:04)
[2018-02-04 06:10] VITALS: BP 128/78
[2018-02-04] MEDS: FERROUS SULFATE 325 MG EC TABLET PO SCH ×2 (07:02→12:12)
[2018-02-04 08:09] VITALS: BP 127/73
[2018-02-04] MEDS: DISULFIRAM 250 MG TABLET PO SCH (08:31)
[2018-02-04] MEDS: CHOLECALCIFEROL (VIT D3) 1,000 UNITS TABLET PO SCH (08:32)
[2018-02-04] MEDS: FLUoxetine HCL 20 MG CAPSULE PO SCH (08:32)
[2018-02-04] MEDS: ARIPiprazole 15 MG TABLET PO SCH (08:33)
[2018-02-04] MEDS: CYCLOBENZAPRINE HCL 10 MG TABLET PO SCH ×2 (08:33→12:13)
[2018-02-04] MEDS: MULTIVITAMINS WITH MINERALS, THERAPEUTIC TABLET PO SCH (08:33)
[2018-02-04] MEDS: FOLIC ACID 1 MG TABLET PO SCH (08:33)
[2018-02-04] MEDS: THIAMINE HCL 100 MG TABLET PO SCH (08:35)
[2018-02-04] MEDS: NICOTINE 14 MG/24 HOUR PATCH TD SCH (08:36)
[2018-02-04] MEDS ORDERED: ARIP15TA2 PO (10:19)
[2018-02-04] MEDS ORDERED: FLUO-191 PO (10:19)
[2018-02-04] MEDS ORDERED: DISU250 PO (10:19)
[2018-02-04] MEDS ORDERED: FERR-89 PO (10:20)
[2018-02-04] MEDS ORDERED: VITAD1000 PO (10:20)
== END 2018-02-04 13:15 | disposition home or self-care (01) | DRG 750 ==
LOC: EMS 15:19 → B3A 19:00
PROVIDERS: ADMIT Psychiatry & Neurology Psychiatry; ATTEND Psychiatry & Neurology Psychiatry
DX: F25.0 Schizoaffective disorder, bipolar type (principal); R45.851 Suicidal ideations; R74.0 Nonspecific elevation of levels of transaminase and lactic acid dehydrogenase [LDH]; I10 Essential (primary) hypertension; F10.20 Alcohol dependence, uncomplicated; F15.21 Other stimulant dependence, in remission; F60.3 Borderline personality disorder; F41.9 Anxiety disorder, unspecified; F34.1 Dysthymic disorder; F19.90 Other psychoactive substance use, unspecified, uncomplicated; F17.290 Nicotine dependence, other tobacco product, uncomplicated; E55.9 Vitamin D deficiency, unspecified; D64.9 Anemia, unspecified; K21.9 Gastro-esophageal reflux disease without esophagitis; Z79.899 Other long term (current) drug therapy; Z81.8 Family history of other mental and behavioral disorders; Z91.14 Patient's other noncompliance with medication regimen; Z59.0 Homelessness; Z85.3 Personal history of malignant neoplasm of breast; Z91.5 Personal history of self-harm; Z98.84 Bariatric surgery status; Z88.6 Allergy status to analgesic agent
CPT/HCPCS: 80074; 83036; 84443; 87081; 99285; G0480

== ENCOUNTER 2018-02-13 17:47 | Inpatient (IN) | payer MEDICAID, OTHER ==
[~2018-02-13] VITALS: Ht 162.6 cm; Wt 70.8 kg
[~2018-02-13 17:47] MED LIST changes: +ARIP15TA2 PO; -CYCL10 PO; +DISU250 PO; +FERR-89 PO; -FOLI1 PO; -GABA-531 PO; -MACR100 PO; -MULT-1239 PO; -NALT50TA6 PO; -QUET100T PO; -THIA100T67 PO
[2018-02-13] MEDS ORDERED: HALOPERIDOL LACTATE 5 MG/ML VIAL IM ONE (18:30)
[2018-02-13] MEDS ORDERED: LORazepam 2 MG/ML VIAL IM ONE (18:30)
[2018-02-13 19:11] LABS: BASOPHILS % (AUTO) 0.7 % (0.0-2.0); EOSINOPHILS % (AUTO) 1.7 % (1.0-6.0); HEMOGLOBIN 10.9 g/dL (12.0-16.0); LYMPHOCYTES # (AUTO) 2.6 K/uL (1.0-4.8); LYMPHOCYTES % (AUTO) 36.8 % (22.0-44.0); MEAN CORPUSCULAR HEMOGLOBIN 29.9 pg (26.0-34.0); MEAN CORPUSCULAR HGB CONC 33.9 G/dL (31.0-37.0); MEAN CORPUSCULAR VOLUME 88 fL (80-100); MONOCYTES # (AUTO) 0.4 K/uL (0.1-1.0); MONOCYTES % (AUTO) 5.7 % (2.0-9.0); NEUTROPHILS # (AUTO) 3.9 K/uL (1.8-7.7); NEUTROPHILS % (AUTO) 55.1 % (40.0-70.0); PLATELET COUNT (AUTO) 319 K/uL (150-450); RED BLOOD CELL COUNT(AUTO) 3.63 MIL/uL (4.00-5.20); RED CELL DISTRIBUTION WIDTH 19.3 % (11.5-14.5)
[2018-02-13] MEDS ORDERED: HALOPERIDOL 5 MG TABLET PO PRN (19:15)
[2018-02-13 19:21] LABS: AMPHET/METH SCREEN,URINE NEGATIVE (NEGATIVE); BARBITURATE SCREEN, URINE NEGATIVE (NEGATIVE); BENZODIAZEPINES SCREEN,URINE NEGATIVE (NEGATIVE); CANNABINOID SCREEN,URINE NEGATIVE (NEGATIVE); COCAINE SCREEN,URINE NEGATIVE (NEGATIVE); METHADONE SCREEN, URINE NEGATIVE (NEGATIVE); OPIATE SCREEN,URINE NEGATIVE (NEGATIVE)
[2018-02-13 19:22] LABS: PHENCYCLIDINE SCREEN,URINE NEGATIVE (NEGATIVE)
[2018-02-13 19:28] LABS: CALCIUM, TOTAL 8.7 mg/dL (8.8-10.5); CREATININE 1.11 mg/dL (0.60-1.30)
[2018-02-13 19:33] LABS: ALBUMIN 3.1 g/dL (3.4-5.0); BILIRUBIN,TOTAL 0.2 mg/dL (0.1-1.0); TOTAL PROTEIN, SERUM 6.6 g/dL (6.4-8.2)
[2018-02-14] VITALS (11 sets, daily range): BP systolic 110–132; BP diastolic 67–93
[2018-02-14] MEDS: LORazepam 2 MG TABLET PO PRN ×2 (02:56→13:51)
[2018-02-14] MEDS ORDERED: DOCUSATE SODIUM 100 MG CAPSULE PO PRN (07:00)
[2018-02-14] MEDS ORDERED: ALBUTEROL SULFATE HFA 90 MCG/PUFF 8 GM INHALER IH PRN (07:00)
[2018-02-14] MEDS ORDERED: LOPERAMIDE HCL 2 MG CAPSULE PO PRN (07:00)
[2018-02-14] MEDS ORDERED: CloNIDine HCL 0.1 MG TABLET PO PRN (07:00)
[2018-02-14] MEDS ORDERED: PETROLATUM,WHITE 71 GM JELLY TP PRN (07:00)
[2018-02-14] MEDS ORDERED: MAG HYDROX/AL HYDROX/SIMETH ES 30 ML SUSPENSION UDCUP PO PRN (07:00)
[2018-02-14] MEDS ORDERED: GuaiFENesin/D-METHORPHAN [SUGAR-FREE] 200-20MG/10 ML SYRUP UDCUP PO PRN (07:00)
[2018-02-14] MEDS ORDERED: MAGNESIUM HYDROXIDE SUSPENSION 30 ML UDCUP PO PRN (07:00)
[2018-02-14] MEDS ORDERED: ONDANSETRON HCL 4 MG TABLET PO PRN (07:00)
[2018-02-14] MEDS ORDERED: ACETAMINOPHEN 325 MG TABLET PO PRN (07:00)
[2018-02-14] MEDS: FERROUS SULFATE 325 MG EC TABLET PO SCH (16:55)
[2018-02-14] MEDS: CHOLECALCIFEROL (VIT D3) 400 UNITS TABLET PO SCH (16:55)
[2018-02-15] MEDS: FERROUS SULFATE 325 MG EC TABLET PO SCH ×3 (06:44→16:38)
[2018-02-15 07:00] VITALS: BP 136/88
[2018-02-15 07:14] LABS: HEMOGLOBIN A1C 4.9 % (4.5-6.2)
[2018-02-15 07:20] LABS: THYROID STIMULATING HORMONE 2.26 uIU/mL (0.36-3.74)
[2018-02-15] MEDS: LORazepam 2 MG TABLET PO PRN ×2 (08:58→14:36)
[2018-02-15] MEDS: ARIPiprazole 15 MG TABLET PO SCH (08:59)
[2018-02-15] MEDS: CHOLECALCIFEROL (VIT D3) 400 UNITS TABLET PO SCH ×2 (08:59→16:37)
[2018-02-15] MEDS: FLUoxetine HCL 20 MG CAPSULE PO SCH (08:59)
[2018-02-15] MEDS: NICOTINE 14 MG/24 HOUR PATCH TD PRN (09:03)
[2018-02-15 09:24] VITALS: BP 145/88
[2018-02-15 09:30] VITALS: BP 145/88
[2018-02-15 16:56] VITALS: BP 129/79
[2018-02-15 16:57] VITALS: BP 129/79
[2018-02-15] MEDS: ZOLPIDEM TARTRATE 10 MG TABLET PO PRN (21:39)
[2018-02-16] MEDS: LORazepam 2 MG TABLET PO PRN ×3 (06:49→16:08)
[2018-02-16] MEDS: FERROUS SULFATE 325 MG EC TABLET PO SCH ×3 (06:55→16:08)
[2018-02-16 08:00] VITALS: BP 134/80
[2018-02-16] MEDS: FLUoxetine HCL 20 MG CAPSULE PO SCH (08:46)
[2018-02-16] MEDS: ARIPiprazole 15 MG TABLET PO SCH (08:46)
[2018-02-16] MEDS: CHOLECALCIFEROL (VIT D3) 400 UNITS TABLET PO SCH ×2 (08:47→16:08)
[2018-02-16 19:24] VITALS: BP 128/98
[2018-02-16] MEDS: ZOLPIDEM TARTRATE 10 MG TABLET PO PRN (22:20)
[2018-02-17 06:10] VITALS: BP 138/93
[2018-02-17] MEDS: LORazepam 2 MG TABLET PO PRN ×4 (06:10→17:50)
[2018-02-17] MEDS: FERROUS SULFATE 325 MG EC TABLET PO SCH ×3 (06:32→16:10)
[2018-02-17 08:00] VITALS: BP 150/94
[2018-02-17] MEDS: FLUoxetine HCL 20 MG CAPSULE PO SCH (08:43)
[2018-02-17] MEDS: ARIPiprazole 15 MG TABLET PO SCH (08:43)
[2018-02-17] MEDS: CHOLECALCIFEROL (VIT D3) 400 UNITS TABLET PO SCH ×2 (08:44→16:10)
[2018-02-17] MEDS: NICOTINE 14 MG/24 HOUR PATCH TD PRN (08:50)
[2018-02-17 16:30] VITALS: BP 145/78
[2018-02-17] MEDS: ZOLPIDEM TARTRATE 10 MG TABLET PO PRN (22:26)
[2018-02-18 06:00] VITALS: BP 122/83
[2018-02-18] MEDS: LORazepam 2 MG TABLET PO PRN (06:04)
[2018-02-18] MEDS: FERROUS SULFATE 325 MG EC TABLET PO SCH ×2 (06:38→12:16)
[2018-02-18] MEDS: ARIPiprazole 15 MG TABLET PO SCH (08:59)
[2018-02-18] MEDS: FLUoxetine HCL 20 MG CAPSULE PO SCH (08:59)
[2018-02-18] MEDS: CHOLECALCIFEROL (VIT D3) 400 UNITS TABLET PO SCH (09:00)
[2018-02-18 09:34] VITALS: BP 151/93
[2018-02-18] MEDS ORDERED: VITAD1000 PO (09:49)
[2018-02-18] MEDS ORDERED: ARIP15TA2 PO (09:50)
[2018-02-18] MEDS ORDERED: VITAD400 PO (09:51)
[2018-02-18] MEDS ORDERED: FLUO-191 PO (09:52)
[2018-02-18] MEDS ORDERED: FERR-89 PO (09:52)
== END 2018-02-18 15:45 | disposition home or self-care (01) | DRG 750 ==
LOC: EMS 17:49 → 3EI 02-14 01:00
PROVIDERS: ATTEND Psychiatry & Neurology Psychiatry
DX: F25.1 Schizoaffective disorder, depressive type (principal); R45.851 Suicidal ideations; I10 Essential (primary) hypertension; D64.9 Anemia, unspecified; E55.9 Vitamin D deficiency, unspecified; F10.10 Alcohol abuse, uncomplicated; F41.9 Anxiety disorder, unspecified; F17.210 Nicotine dependence, cigarettes, uncomplicated; K21.9 Gastro-esophageal reflux disease without esophagitis; Z85.3 Personal history of malignant neoplasm of breast; Z98.82 Breast implant status; Z79.899 Other long term (current) drug therapy; Z88.8 Allergy status to other drugs, medicaments and biological substances
CPT/HCPCS: 82728; 83036; 84443; 87081; 96372; 99285; G0480; J1630; J2060

== ENCOUNTER 2018-06-12 18:24 | Inpatient (IN) | payer MEDICAID, OTHER ==
[~2018-06-12] VITALS: Ht 162.6 cm; Wt 71.4 kg
[~2018-06-12 18:24] MED LIST changes: -DISU250 PO
[2018-06-12 18:56] LABS: BASOPHILS % (AUTO) 0.6 % (0.0-2.0); EOSINOPHILS % (AUTO) 0.8 % (1.0-6.0); LYMPHOCYTES # (AUTO) 2.8 K/uL (1.0-4.8); LYMPHOCYTES % (AUTO) 36.6 % (22.0-44.0); MEAN CORPUSCULAR HEMOGLOBIN 31.4 pg (26.0-34.0); MEAN CORPUSCULAR HGB CONC 34.9 G/dL (31.0-37.0); MEAN CORPUSCULAR VOLUME 90 fL (80-100); MONOCYTES # (AUTO) 0.5 K/uL (0.1-1.0); MONOCYTES % (AUTO) 6.2 % (2.0-9.0); NEUTROPHILS # (AUTO) 4.3 K/uL (1.8-7.7); NEUTROPHILS % (AUTO) 55.8 % (40.0-70.0); PLATELET COUNT (AUTO) 353 K/uL (150-450); RED BLOOD CELL COUNT(AUTO) 4.44 MIL/uL (4.00-5.20); RED CELL DISTRIBUTION WIDTH 15.9 % (11.5-14.5)
[2018-06-12 19:05] LABS: AMPHET/METH SCREEN,URINE NEGATIVE (NEGATIVE); BARBITURATE SCREEN, URINE NEGATIVE (NEGATIVE); BENZODIAZEPINES SCREEN,URINE NEGATIVE (NEGATIVE); CANNABINOID SCREEN,URINE POSITIVE (NEGATIVE); COCAINE SCREEN,URINE NEGATIVE (NEGATIVE); METHADONE SCREEN, URINE NEGATIVE (NEGATIVE); OPIATE SCREEN,URINE NEGATIVE (NEGATIVE); PHENCYCLIDINE SCREEN,URINE NEGATIVE (NEGATIVE)
[2018-06-12 19:10] LABS: ALANINE AMINOTRANSFERASE 24 U/L (12-78); ALBUMIN 3.6 g/dL (3.4-5.0); ALKALINE PHOSPHATASE 60 U/L (46-116); ANION GAP 8 mmol/L (8-16); ASPARTATE AMINOTRANSFERASE 25 U/L (15-37); BILIRUBIN,TOTAL 0.1 mg/dL (0.1-1.0); CALCIUM, TOTAL 8.8 mg/dL (8.8-10.5); CARBON DIOXIDE 28 mmol/L (22-29); CHLORIDE 108 mmol/L (98-107); CREATININE 0.79 mg/dL (0.60-1.30); GLOMERULAR FILTR. RATE CALC > 60 mL/min (>60); GLUCOSE,RANDOM 99 mg/dL (70-110); POTASSIUM 3.6 mmol/L (3.5-5.1); SODIUM SERUM 144 mmol/L (136-145); TOTAL PROTEIN, SERUM 7.2 g/dL (6.4-8.2); UREA NITROGEN, BLOOD 11 mg/dL (7-18)
[2018-06-12] MEDS ORDERED: HALOPERIDOL LACTATE 5 MG/ML VIAL IM ONE (19:15)
[2018-06-12] MEDS ORDERED: LORazepam 2 MG/ML VIAL IM ONE (19:15)
[2018-06-13] MEDS ORDERED: ZOLPIDEM TARTRATE 10 MG TABLET PO PRN (00:15)
[2018-06-13] MEDS ORDERED: HALOPERIDOL 5 MG TABLET PO PRN (00:15)
[2018-06-13 01:29] VITALS: BP 124/85
[2018-06-13 05:20] VITALS: BP 145/94
[2018-06-13] MEDS: LORazepam 2 MG TABLET PO PRN ×2 (05:21→17:47)
[2018-06-13] MEDS ORDERED: CloNIDine HCL 0.1 MG TABLET PO PRN (07:30)
[2018-06-13] MEDS ORDERED: ALBUTEROL SULFATE HFA 90 MCG/PUFF 8 GM INHALER IH PRN (07:30)
[2018-06-13] MEDS ORDERED: GuaiFENesin/D-METHORPHAN [SUGAR-FREE] 200-20MG/10 ML SYRUP UDCUP PO PRN (07:30)
[2018-06-13] MEDS ORDERED: MAG HYDROX/AL HYDROX/SIMETH ES 30 ML SUSPENSION UDCUP PO PRN (07:30)
[2018-06-13] MEDS ORDERED: ONDANSETRON HCL 4 MG TABLET PO PRN (07:30)
[2018-06-13] MEDS ORDERED: PETROLATUM,WHITE 71 GM JELLY TP PRN (07:30)
[2018-06-13] MEDS ORDERED: DOCUSATE SODIUM 100 MG CAPSULE PO PRN (07:30)
[2018-06-13] MEDS ORDERED: MAGNESIUM HYDROXIDE SUSPENSION 30 ML UDCUP PO PRN (07:30)
[2018-06-13] MEDS ORDERED: LOPERAMIDE HCL 2 MG CAPSULE PO PRN (07:30)
[2018-06-13 08:42] VITALS: BP 137/99
[2018-06-13] MEDS: ARIPiprazole 15 MG TABLET PO SCH (13:24)
[2018-06-13] MEDS: FLUoxetine HCL 20 MG CAPSULE PO SCH (13:24)
[2018-06-13] MEDS ORDERED: VITAD400 PO (13:25)
[2018-06-13 16:15] VITALS: BP 124/88
[2018-06-13] MEDS: FERROUS SULFATE 325 MG EC TABLET PO SCH (16:43)
[2018-06-13] MEDS: CHOLECALCIFEROL (VIT D3) 400 UNITS TABLET PO SCH (16:43)
[2018-06-14] MEDS: LORazepam 2 MG TABLET PO PRN ×2 (06:21→12:55)
[2018-06-14 06:53] LABS: BASOPHILS % (AUTO) 0.6 % (0.0-2.0); EOSINOPHILS % (AUTO) 1.3 % (1.0-6.0); HEMATOCRIT 42.4 % (36-46); HEMOGLOBIN 14.6 g/dL (12.0-16.0); LYMPHOCYTES # (AUTO) 1.7 K/uL (1.0-4.8); MEAN CORPUSCULAR HEMOGLOBIN 31.1 pg (26.0-34.0); MEAN CORPUSCULAR HGB CONC 34.6 G/dL (31.0-37.0); MEAN CORPUSCULAR VOLUME 90 fL (80-100); MONOCYTES # (AUTO) 0.4 K/uL (0.1-1.0); MONOCYTES % (AUTO) 5.9 % (2.0-9.0); NEUTROPHILS # (AUTO) 5.1 K/uL (1.8-7.7); NEUTROPHILS % (AUTO) 69.2 % (40.0-70.0); PLATELET COUNT (AUTO) 382 K/uL (150-450); RED BLOOD CELL COUNT(AUTO) 4.71 MIL/uL (4.00-5.20); RED CELL DISTRIBUTION WIDTH 15.5 % (11.5-14.5)
[2018-06-14] MEDS: FERROUS SULFATE 325 MG EC TABLET PO SCH ×3 (06:58→12:55)
[2018-06-14 07:15] LABS: HEMOGLOBIN A1C 5.2 % (4.5-6.2)
[2018-06-14 07:25] LABS: ALANINE AMINOTRANSFERASE 27 U/L (12-78); ALBUMIN 3.5 g/dL (3.4-5.0); ALKALINE PHOSPHATASE 68 U/L (46-116); ANION GAP 8 mmol/L (8-16); ASPARTATE AMINOTRANSFERASE 29 U/L (15-37); BILIRUBIN,TOTAL 0.5 mg/dL (0.1-1.0); CALCIUM, TOTAL 9.1 mg/dL (8.8-10.5); CARBON DIOXIDE 28 mmol/L (22-29); CHLORIDE 104 mmol/L (98-107); CHOLESTEROL 168 mg/dL (131-200); CREATININE 0.85 mg/dL (0.60-1.30); GLOMERULAR FILTR. RATE CALC > 60 mL/min (>60); GLUCOSE,RANDOM 95 mg/dL (70-110); HDL CHOLESTEROL 82 mg/dL (40-60); LDL CHOL (CALC.) 66 mg/dL (0-130); SODIUM SERUM 140 mmol/L (136-145); THYROID STIMULATING HORMONE 1.53 uIU/mL (0.36-3.74); TOTAL PROTEIN, SERUM 7.2 g/dL (6.4-8.2); TRIGLYCERIDES 100 mg/dL (15-150); UREA NITROGEN, BLOOD 16 mg/dL (7-18)
[2018-06-14 09:11] VITALS: BP 150/92
[2018-06-14] MEDS: ARIPiprazole 15 MG TABLET PO SCH (11:00)
[2018-06-14] MEDS: FLUoxetine HCL 20 MG CAPSULE PO SCH (11:00)
[2018-06-14] MEDS: CHOLECALCIFEROL (VIT D3) 400 UNITS TABLET PO SCH ×2 (11:01→16:54)
[2018-06-14] MEDS: NICOTINE 14 MG/24 HOUR PATCH TD PRN (11:05)
[2018-06-14] MEDS: QUEtiapine FUMARATE 100 MG TABLET PO SCH (16:54)
[2018-06-14] MEDS: DISULFIRAM 250 MG TABLET PO SCH (16:54)
[2018-06-14 19:35] VITALS: BP 140/93
[2018-06-15] MEDS: FERROUS SULFATE 325 MG EC TABLET PO SCH ×2 (06:52→12:19)
[2018-06-15] MEDS: NICOTINE 14 MG/24 HOUR PATCH TD PRN (07:59)
[2018-06-15] MEDS: QUEtiapine FUMARATE 100 MG TABLET PO SCH (07:59)
[2018-06-15] MEDS: LORazepam 2 MG TABLET PO PRN (07:59)
[2018-06-15] MEDS: FLUoxetine HCL 20 MG CAPSULE PO SCH (08:00)
[2018-06-15] MEDS: CHOLECALCIFEROL (VIT D3) 400 UNITS TABLET PO SCH (08:00)
[2018-06-15] MEDS: DISULFIRAM 250 MG TABLET PO SCH (08:01)
[2018-06-15 08:05] VITALS: BP 134/93
[2018-06-15] MEDS ORDERED: QUET100T PO (10:00)
[2018-06-15] MEDS ORDERED: DISU250 PO (10:01)
== END 2018-06-15 14:47 | disposition home or self-care (01) | DRG 751 ==
LOC: EMS 18:25 → 3EI 06-13 00:01
PROVIDERS: ADMIT Psychiatry & Neurology Child & Adolescent Psychiatry; ATTEND Psychiatry & Neurology Psychiatry
DX: F33.2 Major depressive disorder, recurrent severe without psychotic features (principal); R45.851 Suicidal ideations; E55.9 Vitamin D deficiency, unspecified; F41.9 Anxiety disorder, unspecified; F17.200 Nicotine dependence, unspecified, uncomplicated; F10.20 Alcohol dependence, uncomplicated; I10 Essential (primary) hypertension; Z85.3 Personal history of malignant neoplasm of breast; Z71.6 Tobacco abuse counseling
CPT/HCPCS: 83036; 84443; 96372; G0480; J1630; J2060

== ENCOUNTER 2018-10-13 15:43 | Inpatient (IN) | payer MEDICAID ==
[~2018-10-13] VITALS: Ht 162.6 cm; Wt 64.9 kg
[~2018-10-13 15:43] MED LIST changes: -ARIP15TA2 PO; +BUSP5TAB20 PO; +DISU250 PO; +MULT-1239 PO; +QUET100T PO; +THIA100T67 PO; -VITAD1000 PO; +VITAD400 PO
[2018-10-13] MEDS ORDERED: ZOLPIDEM TARTRATE 10 MG TABLET PO PRN (19:00)
[2018-10-13 19:36] VITALS: BP 120/73
[2018-10-13] MEDS: HALOPERIDOL 5 MG TABLET PO PRN (19:42)
[2018-10-13] MEDS: LORazepam 2 MG TABLET PO PRN (19:42)
[2018-10-13] MEDS ORDERED: NICOTINE 14 MG/24 HOUR PATCH TD PRN (20:30)
[2018-10-13] MEDS ORDERED: LOPERAMIDE HCL 2 MG CAPSULE PO PRN (20:30)
[2018-10-13] MEDS ORDERED: CloNIDine HCL 0.1 MG TABLET PO PRN (20:30)
[2018-10-13] MEDS ORDERED: GuaiFENesin/D-METHORPHAN [SUGAR-FREE] 200-20MG/10 ML SYRUP UDCUP PO PRN (20:30)
[2018-10-13] MEDS ORDERED: PETROLATUM,WHITE 28 GM JELLY TP PRN (20:30)
[2018-10-13] MEDS ORDERED: MAGNESIUM HYDROXIDE SUSPENSION 30 ML UDCUP PO PRN (20:30)
[2018-10-13] MEDS ORDERED: DOCUSATE SODIUM 100 MG CAPSULE PO PRN (20:30)
[2018-10-13] MEDS ORDERED: ACETAMINOPHEN 325 MG TABLET PO PRN (20:30)
[2018-10-13] MEDS ORDERED: ALBUTEROL SULFATE HFA 90 MCG/PUFF 8 GM INHALER IH PRN (20:30)
[2018-10-13] MEDS ORDERED: MAG HYDROX/AL HYDROX/SIMETH ES 30 ML SUSPENSION UDCUP PO PRN (20:30)
[2018-10-13] MEDS ORDERED: ONDANSETRON HCL 4 MG TABLET PO PRN (20:30)
[2018-10-14 06:28] VITALS: BP 125/75
[2018-10-14 08:17] LABS: BASOPHILS % (AUTO) 0.8 % (0.0-2.0); EOSINOPHILS % (AUTO) 2.4 % (1.0-6.0); HEMATOCRIT 41.2 % (36-46); LYMPHOCYTES # (AUTO) 1.5 K/uL (1.0-4.8); LYMPHOCYTES % (AUTO) 34.7 % (22.0-44.0); MEAN CORPUSCULAR HEMOGLOBIN 30.8 pg (26.0-34.0); MEAN CORPUSCULAR HGB CONC 34.1 G/dL (31.0-37.0); MEAN CORPUSCULAR VOLUME 91 fL (80-100); MONOCYTES # (AUTO) 0.3 K/uL (0.1-1.0); NEUTROPHILS # (AUTO) 2.3 K/uL (1.8-7.7); NEUTROPHILS % (AUTO) 54.1 % (40.0-70.0); PLATELET COUNT (AUTO) 311 K/uL (150-450); RED BLOOD CELL COUNT(AUTO) 4.56 MIL/uL (4.00-5.20); RED CELL DISTRIBUTION WIDTH 13.9 % (11.5-14.5)
[2018-10-14 08:27] VITALS: BP 120/79
[2018-10-14 08:37] LABS: HEMOGLOBIN A1C 5.2 % (4.5-6.2)
[2018-10-14 08:48] LABS: ALANINE AMINOTRANSFERASE 13 U/L (12-78); ALKALINE PHOSPHATASE 62 U/L (46-116); ANION GAP 8 mmol/L (8-16); ASPARTATE AMINOTRANSFERASE 16 U/L (15-37); BILIRUBIN,TOTAL 0.8 mg/dL (0.1-1.0); CALCIUM, TOTAL 9.4 mg/dL (8.8-10.5); CARBON DIOXIDE 28 mmol/L (22-29); CHLORIDE 104 mmol/L (98-107); CHOL/HDL RATIO 2.5 (3.9-5.7); CHOLESTEROL 132 mg/dL (131-200); CREATININE 0.83 mg/dL (0.60-1.30); GLOMERULAR FILTR. RATE CALC > 60 mL/min (>60); GLUCOSE,RANDOM 72 mg/dL (70-110); HDL CHOLESTEROL 52 mg/dL (40-60); LDL CHOL (CALC.) 71 mg/dL (0-130); POTASSIUM 3.5 mmol/L (3.5-5.1); SODIUM SERUM 140 mmol/L (136-145); THYROID STIMULATING HORMONE 1.25 uIU/mL (0.36-3.74); TOTAL PROTEIN, SERUM 6.8 g/dL (6.4-8.2); TRIGLYCERIDES 44 mg/dL (15-150); UREA NITROGEN, BLOOD 15 mg/dL (7-18)
[2018-10-14] MEDS: BACITRACIN 28.4 GM OINTMENT TP SCH ×2 (08:59→16:14)
[2018-10-14] MEDS: FERROUS SULFATE 325 MG EC TABLET PO SCH ×2 (12:20→16:14)
[2018-10-14] MEDS: HALOPERIDOL 5 MG TABLET PO PRN (14:03)
[2018-10-14] MEDS: LORazepam 2 MG TABLET PO PRN (14:03)
[2018-10-14 16:00] VITALS: BP 122/79
[2018-10-14] MEDS: CHOLECALCIFEROL (VIT D3) 400 UNITS TABLET PO SCH (17:00)
[2018-10-15 06:38] VITALS: BP 106/77
[2018-10-15] MEDS: FERROUS SULFATE 325 MG EC TABLET PO SCH ×3 (06:59→16:31)
[2018-10-15 08:01] VITALS: BP 115/74
[2018-10-15] MEDS: MULTIVITAMINS WITH MINERALS, THERAPEUTIC TABLET PO SCH (09:42)
[2018-10-15] MEDS: CHOLECALCIFEROL (VIT D3) 400 UNITS TABLET PO SCH ×2 (09:42→16:31)
[2018-10-15] MEDS: BusPIRone HCL 5 MG TABLET PO SCH ×3 (09:42→16:35)
[2018-10-15] MEDS: FLUoxetine HCL 20 MG CAPSULE PO SCH (09:42)
[2018-10-15] MEDS: QUEtiapine FUMARATE 300 MG TABLET PO SCH ×2 (09:42→16:32)
[2018-10-15] MEDS: BACITRACIN 28.4 GM OINTMENT TP SCH ×2 (09:43→16:32)
[2018-10-15] MEDS: THIAMINE HCL 100 MG TABLET PO SCH (09:43)
[2018-10-15 16:00] VITALS: BP 109/80
[2018-10-16] MEDS: LORazepam 2 MG TABLET PO PRN ×2 (07:04→18:26)
[2018-10-16] MEDS: FERROUS SULFATE 325 MG EC TABLET PO SCH ×3 (07:04→16:27)
[2018-10-16 07:25] VITALS: BP 115/72
[2018-10-16 08:09] VITALS: BP 104/64
[2018-10-16] MEDS: BACITRACIN 28.4 GM OINTMENT TP SCH ×2 (09:24→16:27)
[2018-10-16] MEDS: BusPIRone HCL 5 MG TABLET PO SCH ×3 (09:24→16:27)
[2018-10-16] MEDS: FLUoxetine HCL 20 MG CAPSULE PO SCH (09:24)
[2018-10-16] MEDS: MULTIVITAMINS WITH MINERALS, THERAPEUTIC TABLET PO SCH (09:25)
[2018-10-16] MEDS: THIAMINE HCL 100 MG TABLET PO SCH (09:25)
[2018-10-16] MEDS: QUEtiapine FUMARATE 300 MG TABLET PO SCH ×2 (09:25→16:27)
[2018-10-16] MEDS: CHOLECALCIFEROL (VIT D3) 400 UNITS TABLET PO SCH ×2 (09:26→16:27)
[2018-10-16 16:03] VITALS: BP 108/71
[2018-10-17 05:54] VITALS: BP 111/76
[2018-10-17] MEDS: FERROUS SULFATE 325 MG EC TABLET PO SCH ×2 (06:56→12:34)
[2018-10-17] MEDS: LORazepam 2 MG TABLET PO PRN (07:17)
[2018-10-17] MEDS ORDERED: BACI30OI6 TP (07:49)
[2018-10-17 08:12] VITALS: BP 100/71
[2018-10-17] MEDS: BusPIRone HCL 5 MG TABLET PO SCH ×2 (08:39→12:34)
[2018-10-17] MEDS: FLUoxetine HCL 20 MG CAPSULE PO SCH (08:39)
[2018-10-17] MEDS: THIAMINE HCL 100 MG TABLET PO SCH (08:39)
[2018-10-17] MEDS: MULTIVITAMINS WITH MINERALS, THERAPEUTIC TABLET PO SCH (08:39)
[2018-10-17] MEDS: QUEtiapine FUMARATE 300 MG TABLET PO SCH (08:40)
[2018-10-17] MEDS: CHOLECALCIFEROL (VIT D3) 400 UNITS TABLET PO SCH (08:40)
[2018-10-17] MEDS: BACITRACIN 28.4 GM OINTMENT TP SCH (08:40)
== END 2018-10-17 14:30 | disposition home or self-care (01) | DRG 751 ==
LOC: B3A 18:51
PROVIDERS: ADMIT Psychiatry & Neurology Psychiatry; ATTEND Psychiatry & Neurology Psychiatry
DX: F33.3 Major depressive disorder, recurrent, severe with psychotic symptoms (principal); R45.851 Suicidal ideations; F15.20 Other stimulant dependence, uncomplicated; D64.9 Anemia, unspecified; E55.9 Vitamin D deficiency, unspecified; F17.290 Nicotine dependence, other tobacco product, uncomplicated; F34.1 Dysthymic disorder; F60.3 Borderline personality disorder; F10.20 Alcohol dependence, uncomplicated; F41.9 Anxiety disorder, unspecified; I10 Essential (primary) hypertension; K21.9 Gastro-esophageal reflux disease without esophagitis; Z59.0 Homelessness; Z79.899 Other long term (current) drug therapy; Z81.8 Family history of other mental and behavioral disorders; Z91.5 Personal history of self-harm; Z98.84 Bariatric surgery status
CPT/HCPCS: 83036; 84439; 84443

== ENCOUNTER 2018-10-28 14:19 | Inpatient (IN) | payer MEDICAID, OTHER ==
[~2018-10-28] VITALS: Ht 162.6 cm; Wt 64.0 kg
[~2018-10-28 14:19] MED LIST changes: -DISU250 PO; -FERR-89 PO; -MULT-1239 PO; -THIA100T67 PO; -VITAD400 PO
[2018-10-28] MEDS ORDERED: HALOPERIDOL LACTATE 5 MG/ML VIAL ONE (15:36)
[2018-10-28] MEDS ORDERED: LORazepam 2 MG/ML VIAL ONE (15:37)
[2018-10-28] MEDS ORDERED: DiphenhydrAMINE HCL 50 MG/ML VIAL ONE (15:37)
[2018-10-28] MEDS ORDERED: LORazepam 2 MG/ML VIAL IM ONE (15:45)
[2018-10-28] MEDS ORDERED: DiphenhydrAMINE HCL 50 MG/ML VIAL IM ONE (15:45)
[2018-10-28] MEDS ORDERED: HALOPERIDOL LACTATE 5 MG/ML VIAL IM ONE (15:45)
[2018-10-28 16:04] LABS: AMPHET/METH SCREEN,URINE NEGATIVE (NEGATIVE); BARBITURATE SCREEN, URINE NEGATIVE (NEGATIVE); BENZODIAZEPINES SCREEN,URINE NEGATIVE (NEGATIVE); CANNABINOID SCREEN,URINE POSITIVE (NEGATIVE); COCAINE SCREEN,URINE NEGATIVE (NEGATIVE); METHADONE SCREEN, URINE NEGATIVE (NEGATIVE); OPIATE SCREEN,URINE NEGATIVE (NEGATIVE)
[2018-10-28 16:06] LABS: PHENCYCLIDINE SCREEN,URINE NEGATIVE (NEGATIVE)
[2018-10-28 16:19] LABS: BASOPHILS % (AUTO) 0.7 % (0.0-2.0); EOSINOPHILS % (AUTO) 0.7 % (1.0-6.0); HEMATOCRIT 39.1 % (36-46); HEMOGLOBIN 13.2 g/dL (12.0-16.0); LYMPHOCYTES # (AUTO) 2.2 K/uL (1.0-4.8); MEAN CORPUSCULAR HEMOGLOBIN 30.3 pg (26.0-34.0); MEAN CORPUSCULAR HGB CONC 33.6 G/dL (31.0-37.0); MEAN CORPUSCULAR VOLUME 90 fL (80-100); MONOCYTES # (AUTO) 0.4 K/uL (0.1-1.0); MONOCYTES % (AUTO) 6.9 % (2.0-9.0); NEUTROPHILS # (AUTO) 3.1 K/uL (1.8-7.7); NEUTROPHILS % (AUTO) 53.7 % (40.0-70.0); PLATELET COUNT (AUTO) 337 K/uL (150-450); RED BLOOD CELL COUNT(AUTO) 4.34 MIL/uL (4.00-5.20); RED CELL DISTRIBUTION WIDTH 13.8 % (11.5-14.5)
[2018-10-28 16:29] LABS: ANION GAP 8 mmol/L (8-16); CALCIUM, TOTAL 9.3 mg/dL (8.8-10.5); CARBON DIOXIDE 29 mmol/L (22-29); CHLORIDE 105 mmol/L (98-107); CREATININE 0.91 mg/dL (0.60-1.30); GLOMERULAR FILTR. RATE CALC > 60 mL/min (>60); GLUCOSE,RANDOM 91 mg/dL (70-110); POTASSIUM 3.7 mmol/L (3.5-5.1); SODIUM SERUM 142 mmol/L (136-145); UREA NITROGEN, BLOOD 13 mg/dL (7-18)
[2018-10-28 16:35] LABS: ALANINE AMINOTRANSFERASE 14 U/L (12-78); ALKALINE PHOSPHATASE 55 U/L (46-116); ASPARTATE AMINOTRANSFERASE 12 U/L (15-37); BILIRUBIN,TOTAL 0.2 mg/dL (0.1-1.0); TOTAL PROTEIN, SERUM 6.5 g/dL (6.4-8.2)
[2018-10-28] MEDS ORDERED: HALOPERIDOL 5 MG TABLET PO PRN (16:45)
[2018-10-28] MEDS ORDERED: ZOLPIDEM TARTRATE 10 MG TABLET PO PRN (16:45)
[2018-10-28] MEDS: BusPIRone HCL 5 MG TABLET PO SCH (21:46)
[2018-10-28] MEDS: QUEtiapine FUMARATE 100 MG TABLET PO SCH (22:00)
[2018-10-29] MEDS: BusPIRone HCL 5 MG TABLET PO SCH ×3 (08:30→17:37)
[2018-10-29] MEDS: QUEtiapine FUMARATE 100 MG TABLET PO SCH ×2 (08:30→17:12)
[2018-10-29] MEDS: FLUoxetine HCL 20 MG CAPSULE PO SCH (08:31)
[2018-10-29] MEDS ORDERED: DOCUSATE SODIUM 100 MG CAPSULE PO PRN (13:30)
[2018-10-29] MEDS ORDERED: ONDANSETRON HCL 4 MG TABLET PO PRN (13:30)
[2018-10-29] MEDS ORDERED: MAGNESIUM HYDROXIDE SUSPENSION 30 ML UDCUP PO PRN (13:30)
[2018-10-29] MEDS ORDERED: PETROLATUM,WHITE 28 GM JELLY TP PRN (13:30)
[2018-10-29] MEDS ORDERED: ALBUTEROL SULFATE HFA 90 MCG/PUFF 8 GM INHALER IH PRN (13:30)
[2018-10-29] MEDS ORDERED: CloNIDine HCL 0.1 MG TABLET PO PRN (13:30)
[2018-10-29] MEDS ORDERED: LOPERAMIDE HCL 2 MG CAPSULE PO PRN (13:30)
[2018-10-29] MEDS ORDERED: NICOTINE 14 MG/24 HOUR PATCH TD PRN (13:30)
[2018-10-29] MEDS ORDERED: ACETAMINOPHEN 325 MG TABLET PO PRN (13:30)
[2018-10-29] MEDS ORDERED: IBUPROFEN 400 MG TABLET PO PRN (13:30)
[2018-10-29] MEDS ORDERED: GuaiFENesin/D-METHORPHAN [SUGAR-FREE] 200-20MG/10 ML SYRUP UDCUP PO PRN (13:30)
[2018-10-29] MEDS: LORazepam 2 MG TABLET PO PRN (13:38)
[2018-10-29 14:00] VITALS: BP 116/80
[2018-10-29 16:06] VITALS: BP 118/72
[2018-10-30 06:23] VITALS: BP 103/68
[2018-10-30] MEDS: LORazepam 2 MG TABLET PO PRN ×2 (07:20→16:44)
[2018-10-30 08:18] VITALS: BP 129/85
[2018-10-30] MEDS: FLUoxetine HCL 20 MG CAPSULE PO SCH (08:21)
[2018-10-30] MEDS: QUEtiapine FUMARATE 100 MG TABLET PO SCH ×2 (08:22→16:37)
[2018-10-30] MEDS: BusPIRone HCL 5 MG TABLET PO SCH (08:22)
[2018-10-30] MEDS: BusPIRone HCL 10 MG TABLET PO SCH ×2 (12:55→16:44)
[2018-10-30 16:09] VITALS: BP 111/72
[2018-10-31 05:42] VITALS: BP 110/70
[2018-10-31] MEDS: FLUoxetine HCL 20 MG CAPSULE PO SCH (08:07)
[2018-10-31] MEDS: BusPIRone HCL 10 MG TABLET PO SCH ×3 (08:07→16:23)
[2018-10-31] MEDS: QUEtiapine FUMARATE 100 MG TABLET PO SCH (08:08)
[2018-10-31 08:15] VITALS: BP 103/72
[2018-10-31 08:55] LABS: BASOPHILS % (AUTO) 0.7 % (0.0-2.0); EOSINOPHILS % (AUTO) 2.8 % (1.0-6.0); HEMATOCRIT 43.5 % (36-46); HEMOGLOBIN 14.4 g/dL (12.0-16.0); LYMPHOCYTES # (AUTO) 1.7 K/uL (1.0-4.8); LYMPHOCYTES % (AUTO) 43.5 % (22.0-44.0); MEAN CORPUSCULAR HEMOGLOBIN 30.5 pg (26.0-34.0); MEAN CORPUSCULAR HGB CONC 33.1 G/dL (31.0-37.0); MEAN CORPUSCULAR VOLUME 92 fL (80-100); MONOCYTES # (AUTO) 0.3 K/uL (0.1-1.0); MONOCYTES % (AUTO) 6.6 % (2.0-9.0); NEUTROPHILS # (AUTO) 1.8 K/uL (1.8-7.7); NEUTROPHILS % (AUTO) 46.4 % (40.0-70.0); PLATELET COUNT (AUTO) 330 K/uL (150-450); RED BLOOD CELL COUNT(AUTO) 4.72 MIL/uL (4.00-5.20); RED CELL DISTRIBUTION WIDTH 13.9 % (11.5-14.5)
[2018-10-31] MEDS ORDERED: FLUoxetine HCL 20 MG CAPSULE PO SCH (09:00)
[2018-10-31 09:07] LABS: HEMOGLOBIN A1C 4.8 % (4.5-6.2)
[2018-10-31 09:25] LABS: ALANINE AMINOTRANSFERASE 8 U/L (12-78); ALKALINE PHOSPHATASE 59 U/L (46-116); ANION GAP 5 mmol/L (8-16); ASPARTATE AMINOTRANSFERASE 17 U/L (15-37); BILIRUBIN,TOTAL 0.3 mg/dL (0.1-1.0); CALCIUM, TOTAL 9.1 mg/dL (8.8-10.5); CARBON DIOXIDE 30 mmol/L (22-29); CHLORIDE 105 mmol/L (98-107); CHOLESTEROL 169 mg/dL (131-200); CREATININE 0.85 mg/dL (0.60-1.30); GLOMERULAR FILTR. RATE CALC > 60 mL/min (>60); GLUCOSE,RANDOM 98 mg/dL (70-110); HDL CHOLESTEROL 56 mg/dL (40-60); LDL CHOL (CALC.) 96 mg/dL (0-130); SODIUM SERUM 140 mmol/L (136-145); THYROID STIMULATING HORMONE 1.05 uIU/mL (0.36-3.74); TOTAL PROTEIN, SERUM 6.6 g/dL (6.4-8.2); TRIGLYCERIDES 87 mg/dL (15-150); UREA NITROGEN, BLOOD 22 mg/dL (7-18)
[2018-10-31] MEDS: LORazepam 2 MG TABLET PO PRN (13:55)
[2018-10-31] MEDS: MAG HYDROX/AL HYDROX/SIMETH ES 30 ML SUSPENSION UDCUP PO PRN (13:55)
[2018-10-31 16:00] VITALS: BP 114/75
[2018-10-31] MEDS: QUEtiapine FUMARATE 200 MG TABLET PO SCH (16:23)
[2018-11-01 01:16] VITALS: BP 100/79
[2018-11-01] MEDS: LORazepam 2 MG TABLET PO PRN ×4 (01:24→16:38)
[2018-11-01] MEDS: MAG HYDROX/AL HYDROX/SIMETH ES 30 ML SUSPENSION UDCUP PO PRN (06:05)
[2018-11-01] MEDS: FLUoxetine HCL 20 MG CAPSULE PO SCH (08:04)
[2018-11-01] MEDS: BusPIRone HCL 10 MG TABLET PO SCH ×3 (08:04→16:38)
[2018-11-01] MEDS: QUEtiapine FUMARATE 200 MG TABLET PO SCH ×2 (08:04→16:38)
[2018-11-01 08:21] VITALS: BP 112/77
[2018-11-01] MEDS: DISULFIRAM 250 MG TABLET PO SCH (15:24)
[2018-11-01 16:07] VITALS: BP 121/77
[2018-11-02] MEDS: LORazepam 2 MG TABLET PO PRN ×3 (03:46→19:11)
[2018-11-02 05:21] VITALS: BP 112/79
[2018-11-02 08:20] VITALS: BP 139/75
[2018-11-02] MEDS: FLUoxetine HCL 20 MG CAPSULE PO SCH (08:25)
[2018-11-02] MEDS: FOLIC ACID 1 MG TABLET PO SCH (08:25)
[2018-11-02] MEDS: BusPIRone HCL 10 MG TABLET PO SCH ×3 (08:26→16:54)
[2018-11-02] MEDS: DISULFIRAM 250 MG TABLET PO SCH (08:26)
[2018-11-02] MEDS: QUEtiapine FUMARATE 200 MG TABLET PO SCH ×2 (08:26→16:54)
[2018-11-02 16:46] VITALS: BP 101/62
[2018-11-03 01:51] VITALS: BP 119/76
[2018-11-03] MEDS: LORazepam 2 MG TABLET PO PRN ×2 (01:51→06:38)
[2018-11-03 06:30] VITALS: BP 117/87
[2018-11-03 08:12] VITALS: BP 126/77
[2018-11-03] MEDS: FOLIC ACID 1 MG TABLET PO SCH (08:39)
[2018-11-03] MEDS: QUEtiapine FUMARATE 200 MG TABLET PO SCH (08:39)
[2018-11-03] MEDS: DISULFIRAM 250 MG TABLET PO SCH (08:39)
[2018-11-03] MEDS: FLUoxetine HCL 20 MG CAPSULE PO SCH (08:39)
[2018-11-03] MEDS: BusPIRone HCL 10 MG TABLET PO SCH ×2 (08:39→13:02)
[2018-11-03] MEDS ORDERED: DISU250 PO (12:07)
== END 2018-11-03 13:30 | disposition home or self-care (01) | DRG 751 ==
LOC: EMS 14:19 → B3A 10-29 10:54
PROVIDERS: ADMIT Psychiatry & Neurology Psychiatry; ATTEND Psychiatry & Neurology Psychiatry
DX: F33.3 Major depressive disorder, recurrent, severe with psychotic symptoms (principal); R45.851 Suicidal ideations; R45.850 Homicidal ideations; F10.20 Alcohol dependence, uncomplicated; F17.210 Nicotine dependence, cigarettes, uncomplicated; Y90.6 Blood alcohol level of 120-199 mg/100 ml; I10 Essential (primary) hypertension; K21.9 Gastro-esophageal reflux disease without esophagitis; E55.9 Vitamin D deficiency, unspecified; D64.9 Anemia, unspecified; R45.87 Impulsiveness; D72.819 Decreased white blood cell count, unspecified; F41.9 Anxiety disorder, unspecified; F15.90 Other stimulant use, unspecified, uncomplicated; R41.843 Psychomotor deficit; F34.1 Dysthymic disorder; Z59.0 Homelessness; Z98.84 Bariatric surgery status; Z88.8 Allergy status to other drugs, medicaments and biological substances; Z85.3 Personal history of malignant neoplasm of breast; Z98.82 Breast implant status; Z71.41 Alcohol abuse counseling and surveillance of alcoholic; Z91.5 Personal history of self-harm; Z79.899 Other long term (current) drug therapy; Z81.8 Family history of other mental and behavioral disorders; Z56.0 Unemployment, unspecified
CPT/HCPCS: 83036; 84443; 96372; 99406; G0480; J1200; J1630; J2060

== ENCOUNTER 2019-02-28 14:53 | Inpatient (IN) | payer MEDICAID, OTHER ==
[~2019-02-28] VITALS: Ht 160 cm; Wt 61.2 kg
[~2019-02-28 14:53] MED LIST changes: +DISU250 PO
[2019-02-28] MEDS ORDERED: HYDR-4031 PO (15:23)
[2019-02-28] MEDS ORDERED: ZOLPIDEM TARTRATE 10 MG TABLET PO PRN (16:00)
[2019-02-28 16:27] LABS: BASOPHILS % (AUTO) 0.7 % (0.0-2.0); EOSINOPHILS % (AUTO) 1.5 % (1.0-6.0); HEMATOCRIT 34.1 % (36-46); HEMOGLOBIN 11.4 g/dL (12.0-16.0); LYMPHOCYTES # (AUTO) 3.8 K/uL (1.0-4.8); LYMPHOCYTES % (AUTO) 48.4 % (22.0-44.0); MEAN CORPUSCULAR HEMOGLOBIN 31.7 pg (26.0-34.0); MEAN CORPUSCULAR HGB CONC 33.5 G/dL (31.0-37.0); MEAN CORPUSCULAR VOLUME 95 fL (80-100); MONOCYTES # (AUTO) 0.5 K/uL (0.1-1.0); MONOCYTES % (AUTO) 6.2 % (2.0-9.0); NEUTROPHILS # (AUTO) 3.4 K/uL (1.8-7.7); NEUTROPHILS % (AUTO) 43.2 % (40.0-70.0); PLATELET COUNT (AUTO) 441 K/uL (150-450); RED BLOOD CELL COUNT(AUTO) 3.61 MIL/uL (4.00-5.20); RED CELL DISTRIBUTION WIDTH 14.9 % (11.5-14.5)
[2019-02-28 16:29] LABS: AMPHET/METH SCREEN,URINE NEGATIVE (NEGATIVE); BARBITURATE SCREEN, URINE NEGATIVE (NEGATIVE); BENZODIAZEPINES SCREEN,URINE NEGATIVE (NEGATIVE); CANNABINOID SCREEN,URINE POSITIVE (NEGATIVE); COCAINE SCREEN,URINE NEGATIVE (NEGATIVE); METHADONE SCREEN, URINE NEGATIVE (NEGATIVE); OPIATE SCREEN,URINE NEGATIVE (NEGATIVE)
[2019-02-28 16:38] LABS: ALANINE AMINOTRANSFERASE 10 U/L (12-78); ALBUMIN 3.5 g/dL (3.4-5.0); ALKALINE PHOSPHATASE 51 U/L (46-116); ANION GAP 14 mmol/L (8-16); ASPARTATE AMINOTRANSFERASE 15 U/L (15-37); BILIRUBIN,TOTAL 0.2 mg/dL (0.1-1.0); CALCIUM, TOTAL 9.2 mg/dL (8.8-10.5); CARBON DIOXIDE 25 mmol/L (22-29); CHLORIDE 104 mmol/L (98-107); CREATININE 0.94 mg/dL (0.60-1.30); GLOMERULAR FILTR. RATE CALC > 60 mL/min (>60); GLUCOSE,RANDOM 91 mg/dL (70-110); SODIUM SERUM 143 mmol/L (136-145); UREA NITROGEN, BLOOD 17 mg/dL (7-18)
[2019-02-28 16:44] LABS: POTASSIUM 2.8 mmol/L (3.5-5.1)
[2019-02-28 16:52] LABS: PHENCYCLIDINE SCREEN,URINE NEGATIVE (NEGATIVE)
[2019-02-28] MEDS ORDERED: QUET200T PO (16:54)
[2019-02-28] MEDS ORDERED: BUSP10TA23 PO (16:54)
[2019-02-28] MEDS ORDERED: POTASSIUM CHLORIDE 20 MEQ ER TABLET PO ONE ×2 (17:00→20:45)
[2019-02-28 19:50] VITALS: BP 104/67
[2019-02-28 19:53] VITALS: BP 104/67
[2019-02-28] MEDS: LORazepam 2 MG TABLET PO PRN (20:31)
[2019-02-28] MEDS: HALOPERIDOL 5 MG TABLET PO PRN (20:31)
[2019-02-28] MEDS ORDERED: PETROLATUM,WHITE 28 GM JELLY TP PRN (20:45)
[2019-02-28] MEDS ORDERED: GuaiFENesin/D-METHORPHAN [SUGAR-FREE] 200-20MG/10 ML SYRUP UDCUP PO PRN (20:45)
[2019-02-28] MEDS ORDERED: DOCUSATE SODIUM 100 MG CAPSULE PO PRN (20:45)
[2019-02-28] MEDS ORDERED: IBUPROFEN 400 MG TABLET PO PRN (20:45)
[2019-02-28] MEDS ORDERED: MAG HYDROX/AL HYDROX/SIMETH ES 30 ML SUSPENSION UDCUP PO PRN (20:45)
[2019-02-28] MEDS ORDERED: MAGNESIUM HYDROXIDE SUSPENSION 30 ML UDCUP PO PRN (20:45)
[2019-02-28] MEDS ORDERED: CloNIDine HCL 0.1 MG TABLET PO PRN (20:45)
[2019-02-28] MEDS ORDERED: ACETAMINOPHEN 325 MG TABLET PO PRN (20:45)
[2019-02-28] MEDS ORDERED: NICOTINE 14 MG/24 HOUR PATCH TD PRN (20:45)
[2019-02-28] MEDS ORDERED: ALBUTEROL SULFATE HFA 90 MCG/PUFF 8 GM INHALER IH PRN (20:45)
[2019-02-28] MEDS ORDERED: LOPERAMIDE HCL 2 MG CAPSULE PO PRN (20:45)
[2019-02-28] MEDS ORDERED: ONDANSETRON HCL 4 MG TABLET PO PRN (20:45)
[2019-02-28 20:50] VITALS: BP 120/72
[2019-02-28 21:48] VITALS: BP 119/66
[2019-02-28 22:50] VITALS: BP 109/68
[2019-03-01] VITALS (9 sets, daily range): BP systolic 110–148; BP diastolic 59–86
[2019-03-01 07:36] LABS: BASOPHILS % (AUTO) 0.8 % (0.0-2.0); EOSINOPHILS % (AUTO) 1.5 % (1.0-6.0); HEMOGLOBIN 10.1 g/dL (12.0-16.0); LYMPHOCYTES % (AUTO) 44.6 % (22.0-44.0); MEAN CORPUSCULAR HEMOGLOBIN 31.8 pg (26.0-34.0); MEAN CORPUSCULAR HGB CONC 33.8 G/dL (31.0-37.0); MEAN CORPUSCULAR VOLUME 94 fL (80-100); MONOCYTES # (AUTO) 0.4 K/uL (0.1-1.0); NEUTROPHILS # (AUTO) 1.9 K/uL (1.8-7.7); NEUTROPHILS % (AUTO) 43.1 % (40.0-70.0); PLATELET COUNT (AUTO) 358 K/uL (150-450); RED BLOOD CELL COUNT(AUTO) 3.18 MIL/uL (4.00-5.20); RED CELL DISTRIBUTION WIDTH 14.4 % (11.5-14.5)
[2019-03-01 07:51] LABS: HEMOGLOBIN A1C 5.2 % (4.5-6.2)
[2019-03-01 08:34] LABS: ALANINE AMINOTRANSFERASE 7 U/L (12-78); ALBUMIN 3.1 g/dL (3.4-5.0); ALKALINE PHOSPHATASE 43 U/L (46-116); ANION GAP 8 mmol/L (8-16); ASPARTATE AMINOTRANSFERASE 14 U/L (15-37); BILIRUBIN,TOTAL 0.3 mg/dL (0.1-1.0); CALCIUM, TOTAL 8.9 mg/dL (8.8-10.5); CARBON DIOXIDE 29 mmol/L (22-29); CHLORIDE 107 mmol/L (98-107); CHOL/HDL RATIO 2.6 (3.9-5.7); CHOLESTEROL 133 mg/dL (131-200); CREATININE 0.84 mg/dL (0.60-1.30); FREE T4 (FREE THYROXINE) 0.97 ng/dL (0.76-1.46); GLOMERULAR FILTR. RATE CALC > 60 mL/min (>60); GLUCOSE,RANDOM 84 mg/dL (70-110); HDL CHOLESTEROL 52 mg/dL (40-60); LDL CHOL (CALC.) 74 mg/dL (0-130); POTASSIUM 5.1 mmol/L (3.5-5.1); SODIUM SERUM 144 mmol/L (136-145); THYROID STIMULATING HORMONE 0.58 uIU/mL (0.36-3.74); TOTAL PROTEIN, SERUM 5.7 g/dL (6.4-8.2); TRIGLYCERIDES 33 mg/dL (15-150); UREA NITROGEN, BLOOD 18 mg/dL (7-18)
[2019-03-01] MEDS: BusPIRone HCL 15 MG TABLET PO SCH ×2 (12:26→16:06)
[2019-03-01] MEDS: HALOPERIDOL 5 MG TABLET PO PRN (16:06)
[2019-03-01] MEDS: LORazepam 2 MG TABLET PO PRN (16:07)
[2019-03-01] MEDS: QUEtiapine FUMARATE 300 MG TABLET PO SCH (16:07)
[2019-03-01] MEDS: TraZODone HCL 100 MG TABLET PO SCH (20:11)
[2019-03-02 06:55] VITALS: BP 113/75
[2019-03-02 07:00] VITALS: BP 115/75
[2019-03-02] MEDS: FLUoxetine HCL 20 MG CAPSULE PO SCH (08:10)
[2019-03-02] MEDS: BusPIRone HCL 15 MG TABLET PO SCH ×3 (08:10→16:08)
[2019-03-02] MEDS: QUEtiapine FUMARATE 300 MG TABLET PO SCH ×2 (08:14→16:09)
[2019-03-02 08:33] VITALS: BP 113/74
[2019-03-02 09:14] VITALS: BP 113/74
[2019-03-02] MEDS: LORazepam 2 MG TABLET PO PRN ×2 (12:08→16:09)
[2019-03-02 16:25] VITALS: BP 122/76
[2019-03-02] MEDS: TraZODone HCL 100 MG TABLET PO SCH (20:52)
[2019-03-03 06:09] VITALS: BP 130/82
[2019-03-03 08:26] VITALS: BP 121/69
[2019-03-03] MEDS: LORazepam 2 MG TABLET PO PRN ×3 (08:58→17:29)
[2019-03-03] MEDS: FLUoxetine HCL 20 MG CAPSULE PO SCH (08:58)
[2019-03-03] MEDS: QUEtiapine FUMARATE 300 MG TABLET PO SCH ×2 (08:58→16:36)
[2019-03-03] MEDS: BusPIRone HCL 15 MG TABLET PO SCH ×3 (08:58→16:36)
[2019-03-03 12:33] VITALS: BP 121/69
[2019-03-03 13:58] VITALS: BP 116/74
[2019-03-03 16:11] VITALS: BP 121/76
[2019-03-03] MEDS: TraZODone HCL 100 MG TABLET PO SCH (20:35)
[2019-03-04 06:25] VITALS: BP 117/70
[2019-03-04 08:33] VITALS: BP 106/70
[2019-03-04] MEDS: FLUoxetine HCL 20 MG CAPSULE PO SCH (08:49)
[2019-03-04] MEDS: QUEtiapine FUMARATE 300 MG TABLET PO SCH (08:49)
[2019-03-04] MEDS: BusPIRone HCL 15 MG TABLET PO SCH ×4 (09:00→20:33)
[2019-03-04] MEDS ORDERED: LORazepam 2 MG TABLET PO ONE (15:15)
[2019-03-04] MEDS: QUEtiapine FUMARATE 200 MG TABLET PO SCH (16:05)
[2019-03-04 16:22] VITALS: BP 122/68
[2019-03-04 18:02] VITALS: BP 122/68
[2019-03-04] MEDS: TraZODone HCL 100 MG TABLET PO SCH (20:34)
[2019-03-04 21:23] VITALS: BP 110/68
[2019-03-05] VITALS (8 sets, daily range): BP systolic 99–130; BP diastolic 58–76
[2019-03-05] MEDS: BusPIRone HCL 15 MG TABLET PO SCH ×4 (08:07→20:11)
[2019-03-05] MEDS: MULTIVITAMINS WITH IRON TABLET PO SCH (08:07)
[2019-03-05] MEDS: QUEtiapine FUMARATE 200 MG TABLET PO SCH ×2 (08:07→16:37)
[2019-03-05] MEDS: LORazepam 2 MG TABLET PO PRN ×2 (08:07→17:02)
[2019-03-05] MEDS: FLUoxetine HCL 20 MG CAPSULE PO SCH (08:07)
[2019-03-05] MEDS: TraZODone HCL 100 MG TABLET PO SCH (20:11)
[2019-03-06 04:47] VITALS: BP 118/79
[2019-03-06] MEDS: MULTIVITAMINS WITH IRON TABLET PO SCH (08:15)
[2019-03-06] MEDS: FLUoxetine HCL 20 MG CAPSULE PO SCH (08:15)
[2019-03-06] MEDS: BusPIRone HCL 15 MG TABLET PO SCH ×4 (08:15→20:28)
[2019-03-06] MEDS: QUEtiapine FUMARATE 200 MG TABLET PO SCH ×2 (08:15→17:14)
[2019-03-06 08:32] VITALS: BP 100/53
[2019-03-06 16:15] VITALS: BP 111/66
[2019-03-06] MEDS: TraZODone HCL 100 MG TABLET PO SCH (20:22)
[2019-03-07 06:10] VITALS: BP 117/72
[2019-03-07] MEDS: LORazepam 2 MG TABLET PO PRN ×2 (06:20→16:42)
[2019-03-07 08:22] VITALS: BP 116/70
[2019-03-07] MEDS: BusPIRone HCL 15 MG TABLET PO SCH (09:05)
[2019-03-07] MEDS: MULTIVITAMINS WITH IRON TABLET PO SCH (09:05)
[2019-03-07] MEDS: FLUoxetine HCL 20 MG CAPSULE PO SCH (09:05)
[2019-03-07] MEDS: QUEtiapine FUMARATE 200 MG TABLET PO SCH ×2 (09:05→16:42)
[2019-03-07] MEDS: NALTREXONE HCL 50 MG TABLET PO SCH (13:08)
[2019-03-07] MEDS: BusPIRone HCL 10 MG TABLET PO SCH ×2 (13:08→16:42)
[2019-03-07 16:21] VITALS: BP 107/60
[2019-03-07] MEDS: HALOPERIDOL 5 MG TABLET PO PRN (16:42)
[2019-03-07] MEDS: TraZODone HCL 100 MG TABLET PO SCH (20:35)
[2019-03-08 06:07] VITALS: BP 118/67
[2019-03-08] MEDS: LORazepam 2 MG TABLET PO PRN (06:45)
[2019-03-08 08:00] VITALS: BP 94/71
[2019-03-08] MEDS ORDERED: BUSP10TA23 PO (08:08)
[2019-03-08] MEDS ORDERED: TRAZ-220 PO (08:08)
[2019-03-08] MEDS ORDERED: NALT50TA6 PO (08:08)
[2019-03-08] MEDS ORDERED: QUET200T PO (08:08)
[2019-03-08] MEDS: MULTIVITAMINS WITH IRON TABLET PO SCH (08:30)
[2019-03-08] MEDS: FLUoxetine HCL 20 MG CAPSULE PO SCH (08:30)
[2019-03-08] MEDS: NALTREXONE HCL 50 MG TABLET PO SCH (08:30)
[2019-03-08] MEDS: QUEtiapine FUMARATE 200 MG TABLET PO SCH ×2 (08:30→16:57)
[2019-03-08] MEDS: BusPIRone HCL 10 MG TABLET PO SCH ×3 (08:30→16:57)
[2019-03-08 16:11] VITALS: BP 115/66
== END 2019-03-08 17:40 | disposition home or self-care (01) | DRG 751 ==
LOC: EMS 14:54 → B3A 17:31
PROVIDERS: ADMIT Psychiatry & Neurology Psychiatry; ATTEND Psychiatry & Neurology Psychiatry
DX: F33.3 Major depressive disorder, recurrent, severe with psychotic symptoms (principal); R45.851 Suicidal ideations; F15.20 Other stimulant dependence, uncomplicated; D64.9 Anemia, unspecified; E87.6 Hypokalemia; F34.1 Dysthymic disorder; F41.9 Anxiety disorder, unspecified; F60.3 Borderline personality disorder; F10.20 Alcohol dependence, uncomplicated; I10 Essential (primary) hypertension; F17.210 Nicotine dependence, cigarettes, uncomplicated; K21.9 Gastro-esophageal reflux disease without esophagitis; Z59.0 Homelessness; Z88.6 Allergy status to analgesic agent; Z79.899 Other long term (current) drug therapy; Z81.8 Family history of other mental and behavioral disorders; Z85.3 Personal history of malignant neoplasm of breast; Z91.5 Personal history of self-harm; Z98.82 Breast implant status; Z98.84 Bariatric surgery status; Z56.0 Unemployment, unspecified
CPT/HCPCS: 70450; 72170; 83036; 84439; 84443; G0480

== ENCOUNTER 2019-08-20 10:49 | Inpatient (IN) | payer MEDICAID, OTHER ==
[~2019-08-20] VITALS: Ht 160 cm; Wt 58.9 kg
[~2019-08-20 10:49] MED LIST changes: +BUSP10TA23 PO; -BUSP5TAB20 PO; -DISU250 PO; +NALT50TA6 PO; -QUET100T PO; +QUET200T PO; +TRAZ-257 PO
[2019-08-20 11:33] LABS: GLUCOSE,POINT OF CARE 118 MG/DL (70-110)
[2019-08-20] MEDS ORDERED: HALOPERIDOL LACTATE 5 MG/ML VIAL IM ONE (12:30)
[2019-08-20] MEDS ORDERED: LORazepam 2 MG/ML VIAL IM ONE (12:30)
[2019-08-20] MEDS ORDERED: DiphenhydrAMINE HCL 50 MG/ML VIAL IM ONE (12:30)
[2019-08-20 12:35] LABS: BASOPHILS % (AUTO) 0.1 % (0.0-2.0); EOSINOPHILS % (AUTO) 0.1 % (1.0-6.0); HEMOGLOBIN 13.4 g/dL (12.0-16.0); LYMPHOCYTES # (AUTO) 1.1 K/uL (1.0-4.8); LYMPHOCYTES % (AUTO) 10.9 % (22.0-44.0); MEAN CORPUSCULAR HEMOGLOBIN 31.8 pg (26.0-34.0); MEAN CORPUSCULAR HGB CONC 34.2 G/dL (31.0-37.0); MEAN CORPUSCULAR VOLUME 93 fL (80-100); MONOCYTES # (AUTO) 0.4 K/uL (0.1-1.0); MONOCYTES % (AUTO) 4.1 % (2.0-9.0); NEUTROPHILS # (AUTO) 8.7 K/uL (1.8-7.7); NEUTROPHILS % (AUTO) 84.8 % (40.0-70.0); PLATELET COUNT (AUTO) 345 K/uL (150-450); RED CELL DISTRIBUTION WIDTH 14.5 % (11.5-14.5)
[2019-08-20 12:57] LABS: ANION GAP 9 mmol/L (8-16); CALCIUM, TOTAL 9.1 mg/dL (8.8-10.5); CARBON DIOXIDE 26 mmol/L (22-29); CHLORIDE 104 mmol/L (98-107); CREATININE 0.94 mg/dL (0.60-1.30); GLOMERULAR FILTR. RATE CALC > 60 mL/min (>60); GLUCOSE,RANDOM 111 mg/dL (70-110); POTASSIUM 3.3 mmol/L (3.5-5.1); SODIUM SERUM 139 mmol/L (136-145); UREA NITROGEN, BLOOD 13 mg/dL (7-18)
[2019-08-20 13:03] LABS: ALANINE AMINOTRANSFERASE 22 U/L (12-78); ALBUMIN 3.6 g/dL (3.4-5.0); ALKALINE PHOSPHATASE 73 U/L (46-116); ASPARTATE AMINOTRANSFERASE 26 U/L (15-37); BILIRUBIN,TOTAL 0.2 mg/dL (0.1-1.0)
[2019-08-20] MEDS ORDERED: ZOLPIDEM TARTRATE 10 MG TABLET PO PRN (15:00)
[2019-08-20] MEDS ORDERED: HALOPERIDOL 5 MG TABLET PO PRN (15:00)
[2019-08-20 17:05] VITALS: BP 133/77
[2019-08-20 17:10] VITALS: BP 133/77
[2019-08-20 18:10] VITALS: BP 126/90
[2019-08-20] MEDS ORDERED: POTASSIUM CHLORIDE 20 MEQ ER TABLET PO ONE (18:30)
[2019-08-20 19:08] VITALS: BP 136/80
[2019-08-20 20:08] VITALS: BP 134/90
[2019-08-20] MEDS ORDERED: GuaiFENesin/D-METHORPHAN [SUGAR-FREE] 200-20MG/10 ML SYRUP UDCUP PO PRN (21:00)
[2019-08-20] MEDS ORDERED: CloNIDine HCL 0.1 MG TABLET PO PRN (21:00)
[2019-08-20] MEDS ORDERED: MAG HYDROX/AL HYDROX/SIMETH ES 30 ML SUSPENSION UDCUP PO PRN (21:00)
[2019-08-20] MEDS ORDERED: LOPERAMIDE HCL 2 MG CAPSULE PO PRN (21:00)
[2019-08-20] MEDS ORDERED: PETROLATUM,WHITE 28 GM JELLY TP PRN (21:00)
[2019-08-20] MEDS ORDERED: ACETAMINOPHEN 325 MG TABLET PO PRN (21:00)
[2019-08-20] MEDS ORDERED: ALBUTEROL SULFATE HFA 90 MCG/PUFF 8 GM INHALER IH PRN (21:00)
[2019-08-20] MEDS ORDERED: NICOTINE 14 MG/24 HOUR PATCH TD PRN (21:00)
[2019-08-20] MEDS ORDERED: DOCUSATE SODIUM 100 MG CAPSULE PO PRN (21:00)
[2019-08-20] MEDS ORDERED: MAGNESIUM HYDROXIDE SUSPENSION 30 ML UDCUP PO PRN (21:00)
[2019-08-21] VITALS (7 sets, daily range): BP systolic 129–147; BP diastolic 72–96
[2019-08-21 08:05] LABS: BASOPHILS % (AUTO) 0.9 % (0.0-2.0); EOSINOPHILS % (AUTO) 1.1 % (1.0-6.0); HEMATOCRIT 40.6 % (36-46); HEMOGLOBIN 13.6 g/dL (12.0-16.0); LYMPHOCYTES # (AUTO) 1.7 K/uL (1.0-4.8); LYMPHOCYTES % (AUTO) 33.6 % (22.0-44.0); MEAN CORPUSCULAR HGB CONC 33.4 G/dL (31.0-37.0); MEAN CORPUSCULAR VOLUME 93 fL (80-100); MONOCYTES # (AUTO) 0.2 K/uL (0.1-1.0); MONOCYTES % (AUTO) 3.9 % (2.0-9.0); NEUTROPHILS # (AUTO) 3.1 K/uL (1.8-7.7); NEUTROPHILS % (AUTO) 60.5 % (40.0-70.0); PLATELET COUNT (AUTO) 363 K/uL (150-450); RED BLOOD CELL COUNT(AUTO) 4.38 MIL/uL (4.00-5.20); RED CELL DISTRIBUTION WIDTH 14.1 % (11.5-14.5)
[2019-08-21] MEDS: LORazepam 2 MG TABLET PO PRN ×3 (08:20→17:48)
[2019-08-21 08:33] LABS: ALANINE AMINOTRANSFERASE 21 U/L (12-78); ALBUMIN 3.4 g/dL (3.4-5.0); ALKALINE PHOSPHATASE 74 U/L (46-116); ANION GAP 6 mmol/L (8-16); ASPARTATE AMINOTRANSFERASE 37 U/L (15-37); BILIRUBIN,TOTAL 0.6 mg/dL (0.1-1.0); CALCIUM, TOTAL 9.5 mg/dL (8.8-10.5); CARBON DIOXIDE 28 mmol/L (22-29); CHLORIDE 104 mmol/L (98-107); CHOL/HDL RATIO 2.3 (3.9-5.7); CHOLESTEROL 183 mg/dL (131-200); CREATININE 0.82 mg/dL (0.60-1.30); GLOMERULAR FILTR. RATE CALC > 60 mL/min (>60); GLUCOSE,RANDOM 92 mg/dL (70-110); HDL CHOLESTEROL 80 mg/dL (40-60); LDL CHOL (CALC.) 92 mg/dL (0-130); POTASSIUM 4.1 mmol/L (3.5-5.1); SODIUM SERUM 138 mmol/L (136-145); THYROID STIMULATING HORMONE 3.48 uIU/mL (0.36-3.74); TOTAL PROTEIN, SERUM 6.9 g/dL (6.4-8.2); TRIGLYCERIDES 56 mg/dL (15-150); UREA NITROGEN, BLOOD 12 mg/dL (7-18)
[2019-08-21] MEDS: FLUoxetine HCL 20 MG CAPSULE PO SCH (09:50)
[2019-08-21] MEDS: BusPIRone HCL 10 MG TABLET PO SCH ×2 (13:00→16:39)
[2019-08-21] MEDS ORDERED: QUEtiapine FUMARATE 200 MG TABLET PO SCH (21:00)
[2019-08-22 05:18] VITALS: BP 101/76
[2019-08-22] MEDS: BusPIRone HCL 10 MG TABLET PO SCH ×3 (08:23→16:51)
[2019-08-22] MEDS: FLUoxetine HCL 20 MG CAPSULE PO SCH (08:23)
[2019-08-22 08:31] VITALS: BP 100/65
[2019-08-22] MEDS ORDERED: FLUoxetine HCL 20 MG CAPSULE PO ONE (10:30)
[2019-08-22] MEDS: QUEtiapine FUMARATE 300 MG TABLET PO SCH ×2 (10:48→20:35)
[2019-08-22 11:40] VITALS: BP 112/70
[2019-08-22] MEDS: LORazepam 2 MG TABLET PO PRN (11:57)
[2019-08-22 16:16] VITALS: BP 100/59
[2019-08-22 18:28] VITALS: BP 100/59
[2019-08-23 00:30] VITALS: BP 108/74
[2019-08-23 05:34] VITALS: BP 103/72
[2019-08-23] MEDS: QUEtiapine FUMARATE 300 MG TABLET PO SCH (08:10)
[2019-08-23] MEDS: BusPIRone HCL 10 MG TABLET PO SCH ×3 (08:10→16:43)
[2019-08-23] MEDS: LORazepam 2 MG TABLET PO PRN (08:10)
[2019-08-23 08:20] VITALS: BP 111/60
[2019-08-23] MEDS ORDERED: FLUoxetine HCL 20 MG CAPSULE PO SCH (09:00)
[2019-08-23 13:52] VITALS: BP 111/60
== END 2019-08-23 17:00 | disposition home or self-care (01) | DRG 750 ==
LOC: EMS 10:52 → B3A 15:44
DX: F25.1 Schizoaffective disorder, depressive type (principal); R45.851 Suicidal ideations; E87.6 Hypokalemia; F41.9 Anxiety disorder, unspecified; K21.9 Gastro-esophageal reflux disease without esophagitis; Z85.3 Personal history of malignant neoplasm of breast; F10.229 Alcohol dependence with intoxication, unspecified; F17.200 Nicotine dependence, unspecified, uncomplicated; I10 Essential (primary) hypertension; Z91.5 Personal history of self-harm; Z98.1 Arthrodesis status; Z98.84 Bariatric surgery status; F15.90 Other stimulant use, unspecified, uncomplicated; Y90.6 Blood alcohol level of 120-199 mg/100 ml
CPT/HCPCS: 83036; 84443; 87081; G0480

== ENCOUNTER 2019-12-20 08:52 | Inpatient (IN) | payer MEDICAID, OTHER ==
[~2019-12-20] VITALS: Ht 160 cm; Wt 62.0 kg
[~2019-12-20 08:52] MED LIST changes: -NALT50TA6 PO; -TRAZ-257 PO
[2019-12-20] MEDS ORDERED: SODIUM CHLORIDE 0.9% 1,000 ML IV ONE (09:00)
[2019-12-20 09:45] LABS: BASOPHILS % (AUTO) 0.8 % (0.0-2.0); EOSINOPHILS % (AUTO) 0.3 % (1.0-6.0); HEMATOCRIT 37.7 % (36-46); HEMOGLOBIN 12.8 g/dL (12.0-16.0); LYMPHOCYTES # (AUTO) 1.2 K/uL (1.0-4.8); LYMPHOCYTES % (AUTO) 30.4 % (22.0-44.0); MEAN CORPUSCULAR HEMOGLOBIN 31.4 pg (26.0-34.0); MEAN CORPUSCULAR HGB CONC 34.1 G/dL (31.0-37.0); MEAN CORPUSCULAR VOLUME 92 fL (80-100); MONOCYTES # (AUTO) 0.2 K/uL (0.1-1.0); MONOCYTES % (AUTO) 5.6 % (2.0-9.0); NEUTROPHILS # (AUTO) 2.4 K/uL (1.8-7.7); NEUTROPHILS % (AUTO) 62.9 % (40.0-70.0); PLATELET COUNT (AUTO) 229 K/uL (150-450); RED BLOOD CELL COUNT(AUTO) 4.09 MIL/uL (4.00-5.20); RED CELL DISTRIBUTION WIDTH 13.4 % (11.5-14.5)
[2019-12-20 09:58] LABS: ANION GAP 15 mmol/L (8-16); CALCIUM, TOTAL 8.1 mg/dL (8.8-10.5); CARBON DIOXIDE 24 mmol/L (22-29); CHLORIDE 110 mmol/L (98-107); CREATININE 0.76 mg/dL (0.60-1.30); GLOMERULAR FILTR. RATE CALC > 60 mL/min (>60); GLUCOSE,RANDOM 80 mg/dL (70-110); POTASSIUM 3.4 mmol/L (3.5-5.1); SODIUM SERUM 149 mmol/L (136-145); UREA NITROGEN, BLOOD 12 mg/dL (7-18)
[2019-12-20 10:04] LABS: ALANINE AMINOTRANSFERASE 52 U/L (12-78); ALBUMIN 3.6 g/dL (3.4-5.0); ALKALINE PHOSPHATASE 77 U/L (46-116); ASPARTATE AMINOTRANSFERASE 111 U/L (15-37); BILIRUBIN,TOTAL 0.4 mg/dL (0.1-1.0); TOTAL PROTEIN, SERUM 6.4 g/dL (6.4-8.2)
[2019-12-20 10:05] LABS: ACETAMINOPHEN < 2 mcg/mL (10-30)
[2019-12-20 11:29] LABS: AMPHET/METH SCREEN,URINE NEGATIVE (NEGATIVE); BARBITURATE SCREEN, URINE NEGATIVE (NEGATIVE); BENZODIAZEPINES SCREEN,URINE NEGATIVE (NEGATIVE); CANNABINOID SCREEN,URINE POSITIVE (NEGATIVE); COCAINE SCREEN,URINE NEGATIVE (NEGATIVE); METHADONE SCREEN, URINE NEGATIVE (NEGATIVE); OPIATE SCREEN,URINE NEGATIVE (NEGATIVE)
[2019-12-20 11:35] LABS: PHENCYCLIDINE SCREEN,URINE NEGATIVE (NEGATIVE)
[2019-12-20] MEDS ORDERED: PB/HYOSCY/ATR/SCOP/LIDO/MAALOX 55 ML BOTTLE PO ONE (14:45)
[2019-12-20] MEDS ORDERED: QUET300T2 PO (14:45)
[2019-12-20] MEDS ORDERED: ZOLPIDEM TARTRATE 10 MG TABLET PO PRN (16:00)
[2019-12-20] MEDS: LORazepam 2 MG TABLET PO PRN (19:02)
[2019-12-21] MEDS ORDERED: ONDANSETRON HCL 4 MG TABLET PO PRN
[2019-12-21] MEDS ORDERED: LOPERAMIDE HCL 2 MG CAPSULE PO PRN
[2019-12-21] MEDS ORDERED: ACETAMINOPHEN 325 MG TABLET PO PRN
[2019-12-21] MEDS ORDERED: NICOTINE 14 MG/24 HOUR PATCH TD PRN
[2019-12-21] MEDS ORDERED: DOCUSATE SODIUM 100 MG CAPSULE PO PRN
[2019-12-21] MEDS ORDERED: MAG HYDROX/AL HYDROX/SIMETH ES 30 ML SUSPENSION UDCUP PO PRN
[2019-12-21] MEDS ORDERED: MAGNESIUM HYDROXIDE SUSPENSION 30 ML UDCUP PO PRN
[2019-12-21] MEDS ORDERED: PETROLATUM,WHITE 28 GM JELLY TP PRN
[2019-12-21] MEDS ORDERED: CloNIDine HCL 0.1 MG TABLET PO PRN
[2019-12-21] MEDS ORDERED: GuaiFENesin/D-METHORPHAN [SUGAR-FREE] 200-20MG/10 ML SYRUP UDCUP PO PRN
[2019-12-21] MEDS ORDERED: ALBUTEROL SULFATE HFA 90 MCG/PUFF 8 GM INHALER IH PRN
[2019-12-21 04:06] VITALS: BP 132/73
[2019-12-21] MEDS: LORazepam 2 MG TABLET PO PRN ×2 (08:21→12:47)
[2019-12-21 08:23] VITALS: BP 133/73
[2019-12-21] MEDS: BusPIRone HCL 10 MG TABLET PO SCH (15:57)
[2019-12-21] MEDS: HALOPERIDOL 5 MG TABLET PO PRN (16:01)
[2019-12-21 16:15] VITALS: BP 134/92
[2019-12-21] MEDS: QUEtiapine FUMARATE 300 MG TABLET PO SCH (21:41)
[2019-12-22 06:01] VITALS: BP 115/77
[2019-12-22] MEDS: FLUoxetine HCL 20 MG CAPSULE PO SCH (09:17)
[2019-12-22] MEDS: QUEtiapine FUMARATE 300 MG TABLET PO SCH ×2 (09:18→20:05)
[2019-12-22] MEDS: BusPIRone HCL 10 MG TABLET PO SCH ×3 (09:18→16:28)
[2019-12-22] MEDS: LORazepam 2 MG TABLET PO PRN ×2 (09:18→16:49)
[2019-12-22 09:27] VITALS: BP 131/86
[2019-12-22 18:07] VITALS: BP 115/77
[2019-12-23 05:15] VITALS: BP 112/62
[2019-12-23] MEDS: LORazepam 2 MG TABLET PO PRN (07:09)
[2019-12-23] MEDS: HALOPERIDOL 5 MG TABLET PO PRN (07:09)
[2019-12-23 08:25] VITALS: BP 124/87
[2019-12-23] MEDS: FLUoxetine HCL 20 MG CAPSULE PO SCH (08:27)
[2019-12-23] MEDS: BusPIRone HCL 10 MG TABLET PO SCH ×2 (08:27→13:00)
[2019-12-23] MEDS: QUEtiapine FUMARATE 300 MG TABLET PO SCH (08:27)
[2019-12-23] MEDS ORDERED: FLUO-191 PO (11:41)
[2019-12-23] MEDS ORDERED: QUET300T18 PO (11:41)
[2019-12-23] MEDS ORDERED: BUSP10TA23 PO (11:41)
[2019-12-23 16:00] VITALS: BP 110/78
== END 2019-12-23 17:45 | disposition home or self-care (01) | DRG 750 ==
LOC: EMS 08:56 → B2S 15:56 → B3A 19:09
DX: F25.1 Schizoaffective disorder, depressive type (principal); E87.0 Hyperosmolality and hypernatremia; E87.6 Hypokalemia; F12.10 Cannabis abuse, uncomplicated; F17.200 Nicotine dependence, unspecified, uncomplicated; F60.3 Borderline personality disorder; I10 Essential (primary) hypertension; K21.9 Gastro-esophageal reflux disease without esophagitis; T50.902A Poisoning by unspecified drugs, medicaments and biological substances, intentional self-harm, initial encounter; Y92.89 Other specified places as the place of occurrence of the external cause; Z62.810 Personal history of physical and sexual abuse in childhood; Z79.899 Other long term (current) drug therapy; Z85.3 Personal history of malignant neoplasm of breast; F10.229 Alcohol dependence with intoxication, unspecified; F41.9 Anxiety disorder, unspecified; Z98.84 Bariatric surgery status
CPT/HCPCS: 51701; 51702; 83735; 93005; G0480; G0481; J7030

== ENCOUNTER 2021-02-12 16:42 | Emergency (ER) | payer MEDICAID, OTHER ==
[~2021-02-12 16:42] MED LIST changes: -QUET200T PO; +QUET300T19 PO
== END 2021-02-12 19:15 | disposition left against medical advice (07) ==
LOC: EMS 16:51
DX: F10.129 Alcohol abuse with intoxication, unspecified (principal); Y90.9 Presence of alcohol in blood, level not specified; Z53.21 Procedure and treatment not carried out due to patient leaving prior to being seen by health care provider

== ENCOUNTER 2021-03-19 23:16 | Inpatient (IN) | payer MEDICAID, OTHER ==
[~2021-03-19] VITALS: Ht 160 cm; Wt 48.1 kg
[2021-03-20] MEDS ORDERED: ZOLPIDEM TARTRATE 10 MG TABLET PO PRN (00:15)
[2021-03-20] MEDS ORDERED: LORazepam 2 MG TABLET PO PRN (00:15)
[2021-03-20] MEDS ORDERED: QUEtiapine FUMARATE 100 MG TABLET PO PRN (00:15)
[2021-03-20 00:40] LABS: BASOPHILS % (AUTO) 0.9 % (0.0-2.0); EOSINOPHILS % (AUTO) 1.3 % (1.0-6.0); HEMATOCRIT 37.2 % (36-46); HEMOGLOBIN 12.4 g/dL (12.0-16.0); LYMPHOCYTES # (AUTO) 2.5 K/uL (1.0-4.8); LYMPHOCYTES % (AUTO) 32.8 % (22.0-44.0); MEAN CORPUSCULAR HEMOGLOBIN 30.7 pg (26.0-34.0); MEAN CORPUSCULAR HGB CONC 33.3 G/dL (31.0-37.0); MEAN CORPUSCULAR VOLUME 92 fL (80-100); MONOCYTES # (AUTO) 0.5 K/uL (0.1-1.0); MONOCYTES % (AUTO) 6.3 % (2.0-9.0); NEUTROPHILS # (AUTO) 4.4 K/uL (1.8-7.7); NEUTROPHILS % (AUTO) 58.7 % (40.0-70.0); PLATELET COUNT (AUTO) 431 K/uL (150-450); RED BLOOD CELL COUNT(AUTO) 4.04 MIL/uL (4.00-5.20); RED CELL DISTRIBUTION WIDTH 13.2 % (11.5-14.5)
[2021-03-20 00:49] LABS: ANION GAP 9 mmol/L (8-16); CARBON DIOXIDE 31 mmol/L (22-29); CHLORIDE 103 mmol/L (98-107); CREATININE 0.57 mg/dL (0.60-1.30); GLOMERULAR FILTR. RATE CALC > 60 mL/min (>60); GLUCOSE,RANDOM 85 mg/dL (70-110); POTASSIUM 3.4 mmol/L (3.5-5.1); SODIUM SERUM 143 mmol/L (136-145); UREA NITROGEN, BLOOD 9 mg/dL (7-18)
[2021-03-20 00:55] LABS: ALANINE AMINOTRANSFERASE 21 U/L (12-78); ALBUMIN 3.3 g/dL (3.4-5.0); ALKALINE PHOSPHATASE 70 U/L (46-116); ASPARTATE AMINOTRANSFERASE 21 U/L (15-37); BILIRUBIN,TOTAL 0.4 mg/dL (0.1-1.0); TOTAL PROTEIN, SERUM 6.7 g/dL (6.4-8.2)
[2021-03-20 02:07] LABS: COVID AG,FIA SOURCE NASOPHARYNGEAL
[2021-03-20 02:33] LABS: CREATINE KINASE, TOTAL ONLY 38 U/L (26-192)
[2021-03-20 02:40] LABS: B-TYPE NATRIURETIC PEPTIDE 6 pg/mL (0-100)
[2021-03-20 02:47] LABS: ACETAMINOPHEN < 2 mcg/mL (10-30)
[2021-03-20] MEDS ORDERED: POTASSIUM CHLORIDE 20 MEQ ER TABLET PO ONE (03:30)
[2021-03-20 03:32] LABS: APPEARANCE,URINE CLOUDY (CLEAR); BILIRUBIN,URINE NEGATIVE (NEGATIVE); GLUCOSE, URINE (UA) 100 mg/dL (NEGATIVE); KETONES,URINE NEGATIVE (NEGATIVE); LEUKOCYTE ESTERASE ,URINE NEGATIVE (NEGATIVE); NITRATE,URINE NEGATIVE (NEGATIVE); OCCULT BLOOD,URINE NEGATIVE (NEGATIVE); PROTEIN,URINE NEGATIVE (NEGATIVE); UROBILINOGEN,URINE 0.2 mg/dL (<=1.0)
[2021-03-20 03:37] LABS: AMPHET/METH SCREEN,URINE POSITIVE (NEGATIVE); BARBITURATE SCREEN, URINE NEGATIVE (NEGATIVE); BENZODIAZEPINES SCREEN,URINE NEGATIVE (NEGATIVE); CANNABINOID SCREEN,URINE NEGATIVE (NEGATIVE); COCAINE SCREEN,URINE NEGATIVE (NEGATIVE); METHADONE SCREEN, URINE NEGATIVE (NEGATIVE); OPIATE SCREEN,URINE NEGATIVE (NEGATIVE); PHENCYCLIDINE SCREEN,URINE NEGATIVE (NEGATIVE)
[2021-03-20 03:49] LABS: BACTERIA,URINE Few /HPF (None Seen); RBC,URINE 0-2 /HPF (0-2); SQUAMOUS EPITHELIAL CELL,UR Rare /LPF (None Seen); WBC,URINE 0-2 /HPF (0-5)
[2021-03-20] MEDS ORDERED: CALCIUM CARBONATE 500 MG CHEWABLE TABLET CHEW ONE (05:30)
[2021-03-20] MEDS ORDERED: FAMOTIDINE 20 MG TABLET PO ONE (05:30)
[2021-03-20 14:15] LABS: APPEARANCE,URINE CLEAR (CLEAR); BILIRUBIN,URINE NEGATIVE (NEGATIVE); GLUCOSE, URINE (UA) NEGATIVE (NEGATIVE); KETONES,URINE NEGATIVE (NEGATIVE); LEUKOCYTE ESTERASE ,URINE NEGATIVE (NEGATIVE); NITRATE,URINE NEGATIVE (NEGATIVE); OCCULT BLOOD,URINE NEGATIVE (NEGATIVE); PROTEIN,URINE NEGATIVE (NEGATIVE); UROBILINOGEN,URINE 0.2 mg/dL (<=1.0)
[2021-03-20 14:23] LABS: AMPHET/METH SCREEN,URINE POSITIVE (NEGATIVE); BARBITURATE SCREEN, URINE NEGATIVE (NEGATIVE); BENZODIAZEPINES SCREEN,URINE NEGATIVE (NEGATIVE); CANNABINOID SCREEN,URINE NEGATIVE (NEGATIVE); COCAINE SCREEN,URINE NEGATIVE (NEGATIVE); METHADONE SCREEN, URINE NEGATIVE (NEGATIVE); OPIATE SCREEN,URINE NEGATIVE (NEGATIVE)
[2021-03-20 14:24] LABS: PHENCYCLIDINE SCREEN,URINE NEGATIVE (NEGATIVE)
[2021-03-20] MEDS ORDERED: HydrOXYzine PAMOATE 50 MG CAPSULE PO PRN (15:15)
[2021-03-20] MEDS ORDERED: PROMETHAZINE HCL 25 MG TABLET PO PRN (15:15)
[2021-03-20] MEDS ORDERED: GuaiFENesin/D-METHORPHAN [SUGAR-FREE] 200-20MG/10 ML SYRUP UDCUP PO PRN (15:15)
[2021-03-20] MEDS ORDERED: MAG HYDROX/AL HYDROX/SIMETH ES 30 ML SUSPENSION UDCUP PO PRN (15:15)
[2021-03-20] MEDS ORDERED: TUBERCULIN, PURIFIED PROTEIN DERIVATIVE 5 TU/0.1 ML SYRINGE ID ONE (15:15)
[2021-03-20] MEDS ORDERED: ACETAMINOPHEN 325 MG TABLET PO PRN (15:15)
[2021-03-20] MEDS ORDERED: LOPERAMIDE HCL 2 MG CAPSULE PO PRN ×2 (15:15)
[2021-03-20] MEDS ORDERED: CYANOCOBALAMIN 1,000 MCG/ML VIAL IM ONE (15:15)
[2021-03-20] MEDS ORDERED: MAGNESIUM HYDROXIDE SUSPENSION 30 ML UDCUP PO PRN (15:15)
[2021-03-20] MEDS ORDERED: DIAZEPAM 10 MG TABLET PO PRN (15:15)
[2021-03-20] MEDS ORDERED: GABAPENTIN 300 MG CAPSULE PO ONE (15:15)
[2021-03-20] MEDS ORDERED: DIAZEPAM 10 MG TABLET PO ONE (15:15)
[2021-03-20] MEDS ORDERED: OLANZapine 5 MG RAPDIS TABLET PO PRN (15:15)
[2021-03-20 15:24] VITALS: BP 141/83
[2021-03-20 16:24] VITALS: BP 139/80
[2021-03-20 17:24] VITALS: BP 135/81
[2021-03-20] MEDS: THIAMINE 100 MG TABLET PO SCH (18:06)
[2021-03-20] MEDS: GABAPENTIN 300 MG CAPSULE PO SCH ×2 (18:06→20:31)
[2021-03-20] MEDS: MELATONIN 5 MG TABLET PO SCH (20:31)
[2021-03-20] MEDS ORDERED: OLANZapine 5 MG RAPDIS TABLET PO SCH (21:00)
[2021-03-21 01:10] VITALS: BP 125/72
[2021-03-21 05:34] VITALS: BP 136/79
[2021-03-21] MEDS ORDERED: DIAZEPAM 10 MG TABLET PO PRN (07:00)
[2021-03-21 07:37] LABS: HEMOGLOBIN A1C 5.6 % (3.8-5.6)
[2021-03-21 07:54] LABS: CHOL/HDL RATIO 2.1 (3.9-5.7); FREE T4 (FREE THYROXINE) 0.95 ng/dL (0.76-1.46); THYROID STIMULATING HORMONE 0.98 uIU/mL (0.36-3.74)
[2021-03-21] MEDS: OMEGA-3/DHA/EPA/FISH OIL 1,000 MG CAPSULE PO SCH (08:12)
[2021-03-21] MEDS: FLUoxetine HCL 20 MG CAPSULE PO SCH (08:13)
[2021-03-21] MEDS: FOLIC ACID 1 MG TABLET PO SCH (08:13)
[2021-03-21] MEDS: DIAZEPAM 10 MG TABLET PO SCH ×4 (08:13→20:04)
[2021-03-21] MEDS: GABAPENTIN 300 MG CAPSULE PO SCH ×4 (08:13→20:04)
[2021-03-21] MEDS: THIAMINE 100 MG TABLET PO SCH ×2 (08:13→16:28)
[2021-03-21] MEDS: NALTREXONE HCL 50 MG TABLET PO SCH (08:13)
[2021-03-21] MEDS: MULTIVITAMINS WITH MINERALS, THERAPEUTIC TABLET PO SCH (08:17)
[2021-03-21 08:22] VITALS: BP 112/62
[2021-03-21 16:00] VITALS: BP 127/80
[2021-03-21 16:16] VITALS: BP 127/80
[2021-03-21] MEDS: MELATONIN 5 MG TABLET PO SCH (20:04)
[2021-03-21] MEDS: OLANZapine 10 MG RAPDIS TABLET PO SCH (20:05)
[2021-03-22 00:30] VITALS: BP 110/68
[2021-03-22 06:27] VITALS: BP 120/80
[2021-03-22 08:14] VITALS: BP 123/76
[2021-03-22] MEDS: MULTIVITAMINS WITH MINERALS, THERAPEUTIC TABLET PO SCH (08:51)
[2021-03-22] MEDS: FLUoxetine HCL 20 MG CAPSULE PO SCH (08:51)
[2021-03-22] MEDS: FOLIC ACID 1 MG TABLET PO SCH (08:51)
[2021-03-22] MEDS: OMEGA-3/DHA/EPA/FISH OIL 1,000 MG CAPSULE PO SCH (08:52)
[2021-03-22] MEDS: GABAPENTIN 300 MG CAPSULE PO SCH ×4 (08:52→20:18)
[2021-03-22] MEDS: DIAZEPAM 10 MG TABLET PO SCH ×4 (08:52→20:14)
[2021-03-22] MEDS: THIAMINE 100 MG TABLET PO SCH ×2 (08:52→16:47)
[2021-03-22] MEDS: NALTREXONE HCL 50 MG TABLET PO SCH (08:52)
[2021-03-22 10:00] VITALS: BP 123/76
[2021-03-22 16:16] VITALS: BP 109/65
[2021-03-22 17:22] VITALS: BP 109/65
[2021-03-22] MEDS: MIRTAZAPINE 15 MG TABLET PO SCH (20:14)
[2021-03-22] MEDS: OLANZapine 10 MG RAPDIS TABLET PO SCH (20:14)
[2021-03-22] MEDS: MELATONIN 5 MG TABLET PO SCH (20:18)
[2021-03-23 05:08] VITALS: BP 104/63
[2021-03-23] MEDS ORDERED: DIAZEPAM 5 MG TABLET PO PRN (07:00)
[2021-03-23 08:10] VITALS: BP 128/90
[2021-03-23 08:15] VITALS: BP 120/61
[2021-03-23] MEDS: OMEGA-3/DHA/EPA/FISH OIL 1,000 MG CAPSULE PO SCH (08:19)
[2021-03-23] MEDS: DIAZEPAM 5 MG TABLET PO SCH ×4 (08:19→20:11)
[2021-03-23] MEDS: MULTIVITAMINS WITH MINERALS, THERAPEUTIC TABLET PO SCH (08:19)
[2021-03-23] MEDS: THIAMINE 100 MG TABLET PO SCH ×2 (08:19→16:04)
[2021-03-23] MEDS: GABAPENTIN 300 MG CAPSULE PO SCH ×4 (08:20→20:11)
[2021-03-23] MEDS: FOLIC ACID 1 MG TABLET PO SCH (08:20)
[2021-03-23] MEDS: NALTREXONE HCL 50 MG TABLET PO SCH (08:20)
[2021-03-23 16:06] VITALS: BP 125/79
[2021-03-23 16:39] VITALS: BP 125/79
[2021-03-23] MEDS ORDERED: ONDANSETRON HCL 4 MG/2 ML VIAL IM ONE (18:45)
[2021-03-23] MEDS: MIRTAZAPINE 15 MG TABLET PO SCH (20:10)
[2021-03-23] MEDS: OLANZapine 10 MG RAPDIS TABLET PO SCH (20:10)
[2021-03-23] MEDS: MELATONIN 5 MG TABLET PO SCH (20:10)
[2021-03-24 05:51] VITALS: BP 102/73
[2021-03-24 05:57] VITALS: BP 102/73
[2021-03-24] MEDS: MULTIVITAMINS WITH MINERALS, THERAPEUTIC TABLET PO SCH (08:09)
[2021-03-24] MEDS: OMEGA-3/DHA/EPA/FISH OIL 1,000 MG CAPSULE PO SCH (08:09)
[2021-03-24] MEDS: THIAMINE 100 MG TABLET PO SCH ×2 (08:09→16:09)
[2021-03-24] MEDS: GABAPENTIN 300 MG CAPSULE PO SCH ×4 (08:09→20:08)
[2021-03-24] MEDS: NALTREXONE HCL 50 MG TABLET PO SCH (08:10)
[2021-03-24] MEDS: FOLIC ACID 1 MG TABLET PO SCH (08:10)
[2021-03-24 08:36] VITALS: BP 125/97
[2021-03-24] MEDS: DIAZEPAM 5 MG TABLET PO PRN ×2 (09:13→18:27)
[2021-03-24 16:07] VITALS: BP 130/87
[2021-03-24] MEDS ORDERED: NICOTINE 14 MG/24 HOUR PATCH TD PRN (18:45)
[2021-03-24] MEDS: MELATONIN 5 MG TABLET PO SCH (20:08)
[2021-03-24] MEDS: MIRTAZAPINE 15 MG TABLET PO SCH (20:08)
[2021-03-24] MEDS: OLANZapine 10 MG RAPDIS TABLET PO SCH (20:08)
[2021-03-25 05:29] VITALS: BP 135/72
[2021-03-25 08:13] VITALS: BP 118/71
[2021-03-25] MEDS: NALTREXONE HCL 50 MG TABLET PO SCH (09:18)
[2021-03-25] MEDS: FOLIC ACID 1 MG TABLET PO SCH (09:18)
[2021-03-25] MEDS: THIAMINE 100 MG TABLET PO SCH ×2 (09:18→17:00)
[2021-03-25] MEDS: MULTIVITAMINS WITH MINERALS, THERAPEUTIC TABLET PO SCH (09:18)
[2021-03-25] MEDS: OMEGA-3/DHA/EPA/FISH OIL 1,000 MG CAPSULE PO SCH (09:18)
[2021-03-25] MEDS: GABAPENTIN 300 MG CAPSULE PO SCH ×2 (09:18→13:56)
[2021-03-25 16:28] VITALS: BP 108/84
[2021-03-25] MEDS ORDERED: GABAPENTIN 400 MG CAPSULE PO SCH (17:00)
[2021-03-25] MEDS ORDERED: NALT50TA PO (17:12)
[2021-03-25] MEDS ORDERED: GABA-1201 PO (17:12)
[2021-03-25] MEDS ORDERED: MIRT-89 PO (17:12)
[2021-03-25] MEDS ORDERED: OMEG-135 PO (17:12)
[2021-03-25] MEDS ORDERED: OLAN10TA26 PO (17:12)
[2021-03-25] MEDS ORDERED: MELA5TAB40 PO (17:12)
[2021-03-25] MEDS ORDERED: MIRTAZAPINE 15 MG TABLET PO SCH (21:00)
== END 2021-03-25 18:33 | disposition home or self-care (01) | DRG 750 ==
LOC: EMS 23:20 → B3A 03-20 12:24
PROVIDERS: ADMIT Psychiatry & Neurology Psychiatry; ATTEND Psychiatry & Neurology Psychiatry
DX: F25.0 Schizoaffective disorder, bipolar type (principal); R45.851 Suicidal ideations; Z59.0 Homelessness; F31.9 Bipolar disorder, unspecified; I10 Essential (primary) hypertension; J44.9 Chronic obstructive pulmonary disease, unspecified; F17.200 Nicotine dependence, unspecified, uncomplicated; E87.6 Hypokalemia; F10.129 Alcohol abuse with intoxication, unspecified; F10.139 Alcohol abuse with withdrawal, unspecified; F12.90 Cannabis use, unspecified, uncomplicated; F41.9 Anxiety disorder, unspecified; G89.29 Other chronic pain; K21.9 Gastro-esophageal reflux disease without esophagitis; Z62.810 Personal history of physical and sexual abuse in childhood; Z55.9 Problems related to education and literacy, unspecified; Z59.9 Problem related to housing and economic circumstances, unspecified; Z65.3 Problems related to other legal circumstances; Z68.1 Body mass index [BMI] 19.9 or less, adult; Z85.3 Personal history of malignant neoplasm of breast; Z90.49 Acquired absence of other specified parts of digestive tract; Z91.14 Patient's other noncompliance with medication regimen; Z98.84 Bariatric surgery status; Z88.8 Allergy status to other drugs, medicaments and biological substances
CPT/HCPCS: 71045; 80053; 80061; 81001; 81003; 82550; 83036; 83880; 84132; 84439; 84443; 84484; 85025; 86592; 93005; 99285; G0480; G0481; J2405; J3420; Q9967; 36415-L1; 36415-TC